=== PATIENT | female | born 1970 | race Caucasian/White ===

== ENCOUNTER 2017-06-24 19:51 | Emergency (ER) | payer BC ==
[~2017-06-24] VITALS: Ht 175.3 cm; Wt 136.1 kg
[~2017-06-24 19:51] MED LIST: ABILIFY5 MG PO; ATENOLOL50 MG PO; BUPROPION XL150 MG PO; CARAFATE1 GM/10 ML PO; CELEXA40 MG PO; CETIRIZINE HCL10 MG PEG; ETODOLAC500 MG PO; FENOFIBRATE145 MG PO; FERROUS SULFAT325 MG PO; FLECTOR1 EACH TOP; FOLIC ACID1 MG PO; GABAPENTIN300 MG PO; HYDROCHLOROTHIA25 MG PO; LASIX20 MG PO; LEVETIRACETAM500 MG PO; LISINOPRIL10 MG PO; LYRICA75 MG PO; MEDROXYPROGESTE10 MG PO; METOCLOPRAMIDE10 MG PO; NIACIN500 M2 PO; OMEPRAZOLE40 MG PO; POTASSIUM CHLO10 ME1 PO; PRAVASTATIN SOD40 MG PO; PREDNISONE5 G1 PO; SPIRONOLACTONE25 MG PO; VITAMIN D250000 UNIT PO; XARELTO20 MG PO
--- OUTSIDE RECORDS SUMMARY | 2017-06-24 19:53 | XMS REPORT | Clinical Summary ---
Author Author MAL[facility] Address Unknown Phone Unavailable Care Team Providers Care Program Development Manager Name Role Phone PCP Unavailable Allergies Active Allergy Reactions Severity Noted Date Comments Latex Anaphylaxis High 03/08/2017 Penicillins Anaphylaxis High 03/08/2017 Shellfish Containing Itching 03/22/2017 Pt states "ok with Products contrast media" Current Medications Prescription Sig. Disp. Refills Start End Date Status Date amLODIPine (NORVASC) 10 Take 10 mg by mouth Active MG tablet daily. ARIPiprazole (ABILIFY) 15 Take 15 mg by mouth Active MG tablet daily. atenolol (TENORMIN) 50 MG Take 50 mg by mouth Active tablet daily. buPROPion (WELLBUTRIN XL) Take 300 mg by mouth Active 300 MG 24 hr tablet daily. buPROPion (WELLBUTRIN XL) Take 150 mg by mouth Active 150 MG 24 hr tablet daily. carisoprodol (SOMA) 350 Take 350 mg by mouth 3 Active MG tablet (three) times daily. cetirizine (ZYRTEC) 10 MG Take 10 mg by mouth Active tablet daily. citalopram (CELEXA) 40 MG Take 40 mg by mouth Active tablet daily. fenofibrate Take 160 mg by mouth Active (TRIGLIDE,LOFIBRA) 160 MG daily. tablet ferrous sulfate 325 (65 Take 325 mg by mouth 3 Active FE) MG tablet (three) times daily with meals. folic acid (FOLVITE) 1 MG Take 1 mg by mouth daily. Active tablet furosemide (LASIX) 40 MG Take 40 mg by mouth Active tablet daily. gabapentin (NEURONTIN) Take 400 mg by mouth 3 Active 400 MG capsule (three) times daily. HYDROcodone-acetaminophen Take 1 tablet by mouth Active (NORCO 10-325) 10-325 mg every 6 (six) hours as per tablet needed for Pain. LACTOBACILLUS ACIDOPHILUS Take by mouth. Active (PROBIOTIC ORAL) levETIRAcetam (KEPPRA) Take 1,500 mg by mouth 3 Active 750 MG tabletIndications: (three) times daily. seizure disorder lisinopril Take 40 mg by mouth Active (PRINIVIL,ZESTRIL) 40 MG daily. tablet medroxyPROGESTERone Take 10 mg by mouth Active (PROVERA) 10 MG tablet daily. metoclopramide HCl Take 10 mg by mouth 4 Active (REGLAN) 10 MG tablet (four) times daily. omeprazole (PRILOSEC) 10 Take 10 mg by mouth Active MG capsule daily. potassium chloride Take 10 mEq by mouth Active (KLOR-CON) 10 MEQ CR daily. tablet pravastatin (PRAVACHOL) Take 40 mg by mouth Active 40 MG tablet daily. pregabalin (LYRICA) 225 Take 225 mg by mouth 2 Active MG capsule (two) times daily. promethazine (PHENERGAN) Take 25 mg by mouth every Active 25 MG tablet 6 (six) hours as needed for Nausea. sucralfate (CARAFATE) 1 Take 1 g by mouth 4 Active gram tablet (four) times daily. SUMAtriptan (IMITREX) 50 Take 50 mg by mouth once Active MG tablet as needed for Headaches. calcium carbonate-vitamin Take 1 tablet by mouth Active D2 500 mg(1,250mg) -200 daily. unit tablet ASCORBATE CALCIUM Take by mouth. Active (VITAMIN C ORAL) BUTALB/ACETAMINOPHEN/CAFF Take by mouth as needed. Active EINE (FIORICET ORAL) busPIRone (BUSPAR) 15 MG Take 15 mg by mouth 3 Active tablet (three) times daily. traMADol (ULTRAM) 50 mg Take 1 tablet (50 mg 30 tablet 0 04/11/20 Active tablet total) by mouth 3 (three) 17 times daily. Max Daily Amount: 150 mg rivaroxaban (XARELTO) 15 Take by mouth daily with 04/11/20 Discontin mg Tab tablet dinner . 17 ued traMADol (ULTRAM) 50 mg Take 50 mg by mouth 3 20 Discontin tablet (three) times daily. 17 ued enoxaparin (LOVENOX) 150 Inject 0.66 mLs (100 mg 9.24 mL 0 04/11/20 04/18/20 mg/mL injection total) subcutaneously 17 17 every 12 (twelve) hours for 7 days. 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 syndrome (Primary Dx);Morbid obesity (HCC) 04/06/2017 [facility] Radiology Blanco Mccann, Pre-operative Encounter MD clearance;Hypertension, unspecified type;Hyperlipidemia, unspecified hyperlipidemia type;Venous thromboembolism;Snoring 03/26/2017 Hospital Pavan Mckeon Encounter MD Patricia 03/26/2017 Procedure Pass 03/23/2017 Anesthesia Pankaj Abel MD Event 03/22/2017 Hospital Pre-Admission Testing Pavan Mckeon Encounter MD Patricia 03/22/2017 Hospital Pre-Admission Testing Pavan Mckeon Encounter MD Patricia 03/22/2017 Outside Orders Central Scheduling Blanco Mccann, Pre-operative clearance MD (Primary Dx);Hypertension, unspecified type;Hyperlipidemia, unspecified hyperlipidemia type;Venous thromboembolism;Snoring after 06/23/2016 Social History Tobacco Use Types Packs/Day Years Used Date Current Every Day Smoker 2 28 Smokeless Tobacco: Never Used Tobacco Cessation: Ready to Quit: Yes; Counseling Given: Yes Comments: handout to be given dos Alcohol Use Drinks/Week oz/Week Comments No Sex Assigned at Date Recorded Not on file Last Filed Vital Signs Vital Sign Reading Time Taken Blood Pressure 132/83 04/11/2017 5:50 PM RETIREMENT SALES CONSULTANT Pulse 93 04/11/2017 5:50 PM RETIREMENT SALES CONSULTANT Temperature 36.6 C (97.9 F) 04/11/2017 3:25 PM RETIREMENT SALES CONSULTANT Respiratory Rate 20 04/11/2017 3:25 PM RETIREMENT SALES CONSULTANT Oxygen Saturation 94% 04/11/2017 5:50 PM RETIREMENT SALES CONSULTANT Inhaled Oxygen - - Concentration Weight 149.2 kg (328 lb 14.8 oz) 04/10/2017 11:37 AM RETIREMENT SALES CONSULTANT Height 175.3 cm (5' 9") 04/10/2017 11:37 AM RETIREMENT SALES CONSULTANT Body Mass Index 48.57 04/10/2017 11:37 AM RETIREMENT SALES CONSULTANT Plan of Treatment Health Maintenance Due Date Last Done Comments INFLUENZA VACCINE 01/21/2017 Procedures Procedure Name Priority Date/Time Associated Diagnosis Comments CYSTOSCOPY 04/10/2017 Uterine bleeding 1:00 PM RETIREMENT SALES CONSULTANT LAPAROSCOPY,CYSTECTOMY/SA 04/10/2017 Uterine bleeding LPINGECTOMY/OOPHORECTOMY 1:00 PM RETIREMENT SALES CONSULTANT HYSTERECTOMY,VAGINAL W/ 04/10/2017 Uterine bleeding SALPINGO-OOPHORECTOMY 1:00 PM RETIREMENT SALES CONSULTANT after 06/23/2016 Results * INTRAOPERATIVE PATH REPORT - SCAN (05/02/2017 2:11 PM) * RHYTHM STRIP - SCAN (04/17/2017 2:21 PM) * TRANSFUSION SERVICE REPORT - SCAN (04/13/2017 5:44 PM) Only the most recent of 5 results within the time period is included. * POC-Glucose meter (04/11/2017 6:06 PM) Component Value Ref Range POC-Glucose Meter 187 (H)Comment: TESTED AT [address] 70 - 110 mg /dL [facility] [id number] Specimen Performing Laboratory Blood [address] [address] * Hemoglobin A1c (04/11/2017 2:25 PM) Component Value Ref Range Hemoglobin A1C 7.0 (H) 4.3 - 6.1 % Specimen Performing Laboratory Blood [address] [address] * CBC with platelet count + automated diff (04/11/2017 3:28 AM) Only the most recent of 2 results within the time period is included. Component Value Ref Range WBC 15.5 (H) 3.5 - 10.5 K/ L RBC 4.35 3.93 - 5.22 M/ L Hemoglobin 14.6 11.2 - 15.7 GM/DL Hematocrit 44.3 34.1 - 44.9 % MCV 101.8 (H) 79.4 - 94.8 fL MCH 33.6 (H) 25.6 - 32.2 pg MCHC 33.0 32.2 - 35.5 GM/DL RDW 13.6 11.7 - 14.4 % Platelets 218 150 - 450 K/CU MM MPV 9.5 9.4 - 12.3 fL nRBC 0 0 - 0 /100 WBC % Neutros 87 % % Lymphs 6 % % Monos 6 % % Eos 0 % % Baso 0 % # Neutros 13.55 (H) 1.56 - 6.13 K/ L # Lymphs 0.89 (L) 1.18 - 3.74 K/ L # Monos 0.87 (H) 0.24 - 0.36 K/ L # Eos 0.00 (L) 0.04 - 0.36 K/ L # Baso 0.04 0.01 - 0.08 K/ L Immature 1 0 - 1 % Granulocytes-Relative Specimen Performing Laboratory Blood [address] [address] * CBC with platelet count + automated diff (04/11/2017 3:28 AM) Only the most recent of 2 results within the time period is included. Specimen Performing Laboratory Blood Narrative The following orders were created for panel order CBC with platelet count + automated diff. Procedure Abnormality Status --------- - ------ CBC with platelet count ...[[id number]]AbnormalFinal result Please view results for these tests on the individual orders. * Basic Metabolic Panel (04/11/2017 3:28 AM) Component Value Ref Range Sodium 132 (L) 136 - 145 meq/L Potassium 4.7 3.5 - 5.1 meq/L Chloride 101 98 - 107 meq/L CO2 21 (L) 22 - 29 meq/L BUN 4 (L) 7 - 21 mg/dL Creatinine 0.52 (L) 0.57 - 1.25 mg/dL Glucose 238 (H) 70 - 105 mg/dL Calcium 8.2 (L) 8.4 - 10.2 mg/dL EGFR 127Comment: ESTIMATED GFR IS NOT ACCURATE mL/min/1.73 sq m CREATININE CLEARANCE IN PREDICTING GLOMERULAR FILTRATION RATE. ESTIMATED GFR IS NOT APPLICABLE FOR DIALYSIS PATIENTS. Specimen Performing Laboratory Blood [address] [address] * Tissue Exam (04/10/2017 4:55 PM) Component Value Ref Range Case Report Surgical Pathology Report Case: [id number] Authorizing Provider: MikePavanchristi, Collected: 04/10/2017 1655 Ordering Location: [facility] PERIOPERATIVE Received: 04/10/2017 1703 SERVICES Pathologist: Marianne Perez MD Specimens: A) - Uterus w/Cervix B) - Fallopian Tube, Right & Ovary, Right fallopian tube, right ovary C) - Fallopian Tube, Left & Ovary, Left fallopian tube, left ovary DIAGNOSIS A. UTERUS, CERVIX, HYSTERECTOMY: UTERUS - WEAKLY PROLIFERATIVE ENDOMETRIUM WITH CHRONIC ENDOMETRITIS - UNREMARKABLE MYOMETRIUM - UTERINE SEROSA WITH ENDOMETRIOSIS CERVIX - LOW GRADE SQUAMOUS INTRAEPITHELIAL LESION (TRINH 1) - PARAKERATOSIS - ENDOMETRIOSIS B. FALLOPIAN TUBE AND OVARY, RIGHT, SALPINGO-OOPHORECTOMY: OVARY - INCLUSION CYST FALLOPIAN TUBE - NO PATHOLOGIC CHANGES C. FALLOPIAN TUBE AND OVARY, LEFT, SALPINGO-OOPHORECTOMY: OVARY - HEMORRHAGIC CORPUS LUTEUM CYST FALLOPIAN TUBE - NO PATHOLOGIC CHANGES Signing Pathologist Direct Phone Line: [phone] CPT Code(s) 37364, 39290 CLINICAL HISTORY Abnormal uterine bleed SPECIMEN SOURCE A. Uterus with cervix. B. Right fallopian tube and right ovary. C. Left fallopian tube and left ovary GROSS DESCRIPTION Specimen is received fresh for intraoperative gross consultation labeled with the patient's name, Carlene George and "uterus with cervix" is a 108 gm hysterectomy specimen with no attached adnexal structure present. The uterus measures 9.5 x 5.0 x 4.5 cm. The cervix measures 2.0 x 2.0 cm with guzman-pink ectocervical mucosa. No probable os is present. The uterine serosal surface is pink-guzman and smooth with no masses or lesions grossly identified. Specimen is bivalved coronally revealing an endometrial cavity measuring 2.8 x 2.0 cm with an average endometrial thickness of 0.1 cm. No gross mucosal base lesions or abnormalities are identified. The myometrium average thickness measures 2.0 cm. No additional masses or lesions are identified within the cervix or uterine body. Automobile Parker sections are submitted as follows: cassette A1-A3, anterior ectocervix and endomyometrium; A4-A5, posterior ectocervix and endomyometrium; A7-A12, remainder of anterior cervix; A13-A18, remainder of posterior ectocervix. CLAIRE/pl Specimen is received in two containers of formalin both labeled with the patient's information. Specimen B: Labeled "right fallopian tube and right ovary" consists of an 18 gm salpingo-oophorectomy with ovary measuring 4.5 x 3 x 1.6 cm and a small segment of distal fallopian tube measuring 1 cm in length x 0.4 cm in diameter. The fallopian tube is unremarkable. The ovarian surface is guzman-pink, smooth and intact. Cross sectioning the ovary shows a unilocular subcortical cyst measuring up to 0.7 cm filled with guzman-red clear fluid. No other abnormalities are seen. Section code: B1, entire segment of fallopian tube bisected; B2-B4, random sections of ovary. Specimen C: Labeled "left fallopian tube and left ovary" consists of a 19 gm salpingo-oophorectomy with ovary measuring 4 x 3 x 2 cm and a segment of fallopian tube measuring 1.5 cm in length x 0.3 cm in diameter. There are multiple small subcortical cysts measuring up to 0.5 cm filled with guzman-red thin fluid. There are also two hemorrhagic corpora lutea measuring up to 1 cm in greatest dimension. No other abnormalities are seen. Section code: C1, entire fallopian tube segment bisected; C2-C4, random sections of ovary. CG/ew INTRAOPERATIVE A. INTRAOPERATIVE GROSS EXAMINATION: CONSULTATION - NO GROSSLY MALIGNANT LESIONS. DEFERRED TO PERMANENT MICROSCOPIC SECTIONS - INTERPRETED BY DR. MARTHA LEYVA. TIME STAMPED: APR 10, 2017, 5:20 P.M. MICROSCOPIC DESCRIPTION A-C: Performed. Professional component [facility], Department of was performed at Pathology, [address] [place] [id number], Specimen Performing Laboratory Tissue - Uterus w/Cervix; [facility] Tissue - Fallopian Tube, [address] [place] [address] Right & Ovary; [place] [address] Fallopian Tube, Left & Ovary * POCT , urine (04/10/2017 1:18 PM) Component Value Ref Range Test Urine, POC Negative Control line present?, Yes POC Background clear?, POC Yes UPT Cassette Lot #, POC [id number] UPT Cassette Expiration 09/20/2018 Date, POC * Prepare RBC (04/09/2017 12:07 PM) Only the most recent of 3 results within the time period is included. Component Value Ref Range Unit ABO B Pos UNIT NUMBER [id number] Status WORK IN PROGRESS Blood Bank Product RED BLOOD CELLS PRODUCT CODE [id number] Unit ABO B Pos UNIT NUMBER [id number] Status WORK IN PROGRESS Blood Bank Product RED BLOOD CELLS PRODUCT CODE [id number] Specimen Performing Laboratory [facility] [place] * NM myocardial perfusion SPECT, pharm(Lexiscan) (04/09/2017 11:31 AM) Specimen Performing Laboratory [facility] Narrative FINAL REPORT PROCEDURE:2-Day Stress/Rest MYOCARDIAL PERFUSION SPECT with regadenoson\\XA9\\ CPT CODE:39592 INDICATION:Z01.818, I 10, E 78.5, I 82.90, R06.83 HISTORY:Cardiac risk factors: Hypertension, dyslipidemia, tobacco. Other cardiovascular history: No reported CAD. Recent cardiac symptoms: Dyspnea, syncope. Current cardiovascular-related medications: Fenofibrate, amlodipine, lisinopril, atenolol, furosemide. PROTOCOL:32.7 mCi of Tc-99m sestamibi was injected iv at expected peak pharmacologic effect, and gated SPECT (tomographic) images were obtained. On a separate day, 32.5 mCi of Tc-99m sestamibi was injected iv at rest, and SPECT images were obtained. PRELIMINARY STRESS TEST DATA FROM NONINVASIVE CARDIOLOGY: Pharmacologic stress was by 10-second iv infusion of 0.4 mg of regadenoson. Radiotracer was injected 30 seconds after start of stress. Heart rate was 74 beats/min at rest and 88 beats/min (50 % of MPHR) at tracer injection. BP was 108/58 mmHg at rest and 112/58 mmHg at tracer injection. Stress was stopped for predetermined endpoint. The patient experienced no symptoms; treatment was not required. Preliminary ECG evaluation revealed sinus rhythm at rest and no ischemic changes with stress. (Final ECG interpretation and other stress and monitoring data are reported separately by Cardiology.) IMAGING FINDINGS:Study quality is adequate. Post-stress images show perfusion defects in the basal and mid anterior and anteroseptal rosales. Resting images show the same defects. LV volume appears normal. RV volume appears normal. Gated images obtained at rest after stress injection show normal LV wall motion and thickening. QGS LVEF is greater than 70%. IMPRESSION: 1. Normal study.2. Appropriate pharmacologic stress. 3. Probably normal myocardial perfusion. There is a mild severity, medium sized, fixed, perfusion defect in the basal and mid anterior and anteroseptal rosales of the LV. These abnormalities likely represent artifact from overlying breast tissue. 4. Overall resting LV function is normal with normal wall motion.5. Extracardiac tracer distribution is normal.6. No previous [facility] study for comparison. NONINVASIVE RISK STRATIFICATION: The above findings are considered low risk (<1% annual mortality rate) based on the following criterion: - Normal or small myocardial perfusion defect at rest or with stress (JAC. 2012;59(9):857-81.) Signed: Hasmukh Lorenzo MD Report Verified Date/Time:04/09/2017 14:36:37 Reading Location: [address] Reading Room Procedure Note Interface, External Ris In - 04/09/2017 2:38 PM RETIREMENT SALES CONSULTANT FINAL REPORT PROCEDURE: 2-Day Stress/Rest MYOCARDIAL PERFUSION SPECT with regadenoson\\XA9\\ CPT CODE: 80110 INDICATION: Z01.818, I 10, E 78.5, I 82.90, R06.83 HISTORY: Cardiac risk factors: Hypertension, dyslipidemia, tobacco. Other cardiovascular history: No reported CAD. Recent cardiac symptoms: Dyspnea, syncope. Current cardiovascular-related medications: Fenofibrate, amlodipine, lisinopril, atenolol, furosemide. PROTOCOL: 32.7 mCi of Tc-99m sestamibi was injected iv at expected peak pharmacologic effect, and gated SPECT (tomographic) images were obtained. On a separate day, 32.5 mCi of Tc-99m sestamibi was injected iv at rest, and SPECT images were obtained. PRELIMINARY STRESS TEST DATA FROM NONINVASIVE CARDIOLOGY: Pharmacologic stress was by 10-second iv infusion of 0.4 mg of regadenoson. Radiotracer was injected 30 seconds after start of stress. Heart rate was 74 beats/min at rest and 88 beats/min (50 % of MPHR) at tracer injection. BP was 108/58 mmHg at rest and 112/58 mmHg at tracer injection. Stress was stopped for predetermined endpoint. The patient experienced no symptoms; treatment was not required. Preliminary ECG evaluation revealed sinus rhythm at rest and no ischemic changes with stress. (Final ECG interpretation and other stress and monitoring data are reported separately by Cardiology.) IMAGING FINDINGS: Study quality is adequate. Post-stress images show perfusion defects in the basal and mid anterior and anteroseptal rosales. Resting images show the same defects. LV volume appears normal. RV volume appears normal. Gated images obtained at rest after stress injection show normal LV wall motion and thickening. QGS LVEF is greater than 70%. IMPRESSION: 1. Normal study. 2. Appropriate pharmacologic stress. 3. Probably normal myocardial perfusion. There is a mild severity, medium sized, fixed, perfusion defect in the basal and mid anterior and anteroseptal rosales of the LV. These abnormalities likely represent artifact from overlying breast tissue. 4. Overall resting LV function is normal with normal wall motion. 5. Extracardiac tracer distribution is normal. 6. No previous [facility] study for comparison. NONINVASIVE RISK STRATIFICATION: The above findings are considered low risk (<1% annual mortality rate) based on the following criterion: - Normal or small myocardial perfusion defect at rest or with stress (JACC. 2012;59(9):857-81.) Signed: Hasmukh Lorenzo MD Report Verified Date/Time: 04/09/2017 14:36:37 Reading Location: [address] Reading Room * Treadmill tolerance(Non-Nuclear Treadmill) (04/06/2017 10:27 AM) Specimen Performing Laboratory [facility] Narrative Protocol Name Regadenoson Time In Exercise Phase 00:01:00 Max. Systolic BP 112 mmHg Max Diastolic BP 58 mmHg Max Heart Rate 88 BPM Max Predicted Heart Rate 174 BPM Reason For Termination Predetermined end point Reason for Test Pre Op Cardiac Evaluation/Clearance Target HR Formula (220 - Age)*100% Arrhythmias none Resting ECG Normal sinus rhythm ST Changes No Significant Changes Overall Impression Indeterminate due to pharmacological stress Chest Pain none HR Response To Exercise BP Response To Exercise ATENOLOL AMLODIPINE LASIX LISINOPRIL Fenofibrate Confirmed by fellow Yosef Andrade ([id number]) on 04/06/2017 10:48:47 AM Confirmed by MD FERGUSON JORGE ([id number]) on 04/11/2017 1:01:06 PM Procedure Note Interface, External Ris In - 04/11/2017 1:01 PM RETIREMENT SALES CONSULTANT Protocol Name Neptali Time In Exercise Phase 00:01:00 Max. Systolic BP 112 mmHg Max Diastolic BP 58 mmHg Max Heart Rate 88 BPM Max Predicted Heart Rate 174 BPM Reason For Termination Predetermined end point Reason for Test Pre Op Cardiac Evaluation/Clearance Target HR Formula (220 - Age)*100% Arrhythmias none Resting ECG Normal sinus rhythm ST Changes No Significant Changes Overall Impression Indeterminate due to pharmacological stress Chest Pain none HR Response To Exercise BP Response To Exercise ATENOLOL AMLODIPINE LASIX LISINOPRIL Fenofibrate Confirmed by fellow Yosef Andrade ([id number]) on 04/06/2017 10:48:47 AM Confirmed by MD FERGUSON JORGE ([id number]) on 04/11/2017 1:01:06 PM * Antibody identification (03/23/2017 10:15 AM) Component Value Ref Range ANTIBODY ID (BEAKER) WARM AUTO AB Antibody Consult SIGNED OUTComment: Warm panagglutinin detected, ok to transfuse incompatible blood.Electronic Signature: Elton Cesar M.D. Specimen Performing Laboratory [facility] [place] * Type and screen, automated (03/22/2017 5:11 PM) Component Value Ref Range ABO/RH AUTOMATED (BEAKER) B POSITIVE Ab Scrn POSITIVEComment: Echo 2 Specimen [place] [address] * Screen, urine (03/22/2017 5:11 PM) Component Value Ref Range Preg Test, Ur Negative Specimen Performing [place] [address] * Direct AHG (NOÉ)/Direct Liborio (03/22/2017 5:11 PM) Component Value Ref Range Direct AHG-IGG POSITIVEComment: Ig+ Direct AHG-C3B, C3D POSITIVEComment: C3: 1+ Specimen [place] [address] * Comprehensive metabolic panel (03/22/2017 5:11 PM) Component Value Ref Range Protein, Total 7.9Comment: Specimen slightly hemolyzed 6.0 - 8.3 gm/dL Albumin 4.0Comment: Specimen slightly hemolyzed 3.5 - 5.0 g/dL Alkaline Phosphatase 74 40 - 150 U/L Total Bilirubin 0.3Comment: Specimen slightly hemolyzed 0.2 - 1.2 mg/dL Sodium 136 136 - 145 meq/L Potassium 4.6Comment: Specimen slightly hemolyzed 3.5 - 5.1 meq/L Chloride 99 98 - 107 meq/L CO2 26 22 - 29 meq/L BUN 17 7 - 21 mg/dL Creatinine 0.81Comment: Specimen slightly hemolyzed 0.57 - 1.25 mg/dL Glucose 227 (H) 70 - 105 mg/dL Calcium 9.5 8.4 - 10.2 mg/dL AST 21Comment: Specimen slightly hemolyzed 5 - 34 U/L ALT 26Comment: Specimen slightly hemolyzed 6 - 55 U/L EGFR 76Comment: ESTIMATED GFR IS NOT ACCURATE mL/min/1.73 sq m CREATININE CLEARANCE IN PREDICTING GLOMERULAR FILTRATION RATE. ESTIMATED GFR IS NOT APPLICABLE FOR DIALYSIS PATIENTS. Specimen Performing Laboratory Blood [address] [address] * PT/aPTT (03/22/2017 5:10 PM) Component Value Ref Range Protime 14.4 11.7 - 14.7 seconds INR 1.1 <=5.9 PTT 27.6 22.5 - 36.0 seconds Specimen Performing Laboratory Blood [address] [address] Narrative RECOMMENDED COUMADIN/WARFARIN INR THERAPY RANGES STANDARD DOSE: 2.0 - 3.0 Includes: PROPHYLAXIS for venous thrombosis, systemic embolization; TREATMENT for venous thrombosis and/or pulmonary embolus. HIGH RISK: Target INR is 2.5-3.5 for patients with mechanical heart valves. after 06/23/2016
--- OUTSIDE RECORDS SUMMARY | 2017-06-24 19:54 | XMS REPORT ---
Author Author [facility] Address Unknown Phone Unavailable Care Team Providers Care Boiler Mechanic Name Role Phone FABRIZIO MCKEON Unavailable Unavailable HERMINIAJOYJOMAR Unavailable Unavailable Problems This patient has no known problems. Allergies, Adverse Reactions, Alerts This patient has no known allergies or adverse reactions. Medications This patient has no known medications. Results Test Description Test Time Test Comments Text Results Atomic Results Result Comments TISSUE EXAM 2017-04-12 12:14:00 Surgical Pathology Report Case: [id number] Authorizing Provider: Fabrizio Mckeon, Collected: 04/10/2017 1655 Ordering Location: [facility] PERIOPERATIVE Received: 04/10/2017 1703 SERVICES Pathologist: Marianne Perez MD Specimens: A) - Uterus w/Cervix B) - Fallopian Tube, Right & Ovary, Right fallopian tube, right ovary C) - Fallopian Tube, Left & Ovary, Left fallopian tube, left ovary A. UTERUS, CERVIX, HYSTERECTOMY: UTERUS - WEAKLY PROLIFERATIVE ENDOMETRIUM WITH CHRONIC ENDOMETRITIS - UNREMARKABLE MYOMETRIUM - UTERINE SEROSA WITH ENDOMETRIOSIS CERVIX - LOW GRADE SQUAMOUS INTRAEPITHELIAL LESION (TRINH 1) - PARAKERATOSIS - ENDOMETRIOSISB. FALLOPIAN TUBE AND OVARY, RIGHT, SALPINGO-OOPHORECTOMY: OVARY - INCLUSION CYST FALLOPIAN TUBE - NO PATHOLOGIC CHANGESC. FALLOPIAN TUBE AND OVARY, LEFT, SALPINGO-OOPHORECTOMY: OVARY - HEMORRHAGIC CORPUS LUTEUM CYST FALLOPIAN TUBE - NO PATHOLOGIC CHANGES Signing Pathologist Direct Phone Line: [phone] signed by Marianne Perez MD on 04/12/2017 at 12:14 [id number], [id number] uterine bleedA. Uterus with cervix. B. Right fallopian tube and right ovary. C. Left fallopian tube and left ovary Specimen is received fresh for intraoperative gross [...] identified within the cervix or uterine body. Desilverizer sections are submitted as follows: cassette A1-A3, anterior ectocervix and endomyometrium; A4-A5, posterior ectocervix and endomyometrium; A7-A12, remainder of anterior cervix; A13-A18, remainder of posterior ectocervix. CLAIRE/plSpecimen is received in two containers of formalin both labeled with the patient's information.Specimen B: Labeled "right fallopian tube and right [...] guzman-red clear fluid. No other abnormalities are seen.Section code: B1, entire segment of fallopian tube bisected; B2-B4, random sections of ovary.Specimen C: Labeled "left fallopian tube and left [...] in greatest dimension. No other abnormalities are seen.Section code: C1, entire fallopian tube segment bisected; C2-C4, random sections of ovary. CG/Ritchie. INTRAOPERATIVE GROSS EXAMINATION: - NO GROSSLY MALIGNANT LESIONS. DEFERRED TO PERMANENT MICROSCOPIC SECTIONS - INTERPRETED BY DR. MARTHA LEYVA. TIME STAMPED: APR 10, 2017, 5:20 P.M.A-C: Performed.[facility] , Department of Pathology, [address] [place] [address], Tel POCT-GLUCOSE METER 2017-04-11 18:08:00 POC-GLUCOSE METER (BEAKER) (test awss=8828) 187 mg/dL 70-110 [address]ED AT [address] [address] HEMOGLOBIN [id number] 16:51:00* Test Item Value Reference Range Comments HEMOGLOBIN A1C (BEAKER) (test fgum=020) 7.0 % 4.3-6.1 CBC W/PLT COUNT & AUTO [id number] 04:35:00* Test Item Value Reference Range Comments WHITE BLOOD CELL COUNT (BEAKER) (test bhux=570) 15.5 K/ L 3.5-10.5 RED BLOOD CELL COUNT (BEAKER) (test rqgm=070) 4.35 M/ L 3.93-5.22 HEMOGLOBIN (BEAKER) (test dupi=672) 14.6 GM/DL 11.2-15.7 HEMATOCRIT (BEAKER) (test owyn=321) 44.3 % 34.1-44.9 MEAN CORPUSCULAR VOLUME (BEAKER) (test kibm=579) 101.8 fL 79.4-94.8 MEAN CORPUSCULAR HEMOGLOBIN (BEAKER) (test xdrb=499) 33.6 pg 25.6-32.2 MEAN CORPUSCULAR HEMOGLOBIN CONC (BEAKER) (test alrq=778) 33.0 GM/DL 32.2- 35.5 RED CELL DISTRIBUTION WIDTH (BEAKER) (test ooqz=321) 13.6 % 11.7-14.4 PLATELET COUNT (BEAKER) (test ibne=908) 218 K/CU MM 150-450 MEAN PLATELET VOLUME (BEAKER) (test hqru=251) 9.5 fL 9.4-12.3 NUCLEATED RED BLOOD CELLS (BEAKER) (test egbw=812) 0 /100 WBC 0-0 NEUTROPHILS RELATIVE PERCENT (BEAKER) (test rzww=908) 87 % LYMPHOCYTES RELATIVE PERCENT (BEAKER) (test ytkt=480) 6 % MONOCYTES RELATIVE PERCENT (BEAKER) (test fgqi=997) 6 % EOSINOPHILS RELATIVE PERCENT (BEAKER) (test klmp=547) 0 % BASOPHILS RELATIVE PERCENT (BEAKER) (test jmru=421) 0 % NEUTROPHILS ABSOLUTE COUNT (BEAKER) (test zhlp=837) 13.55 K/ L 1.56-6.13 LYMPHOCYTES ABSOLUTE COUNT (BEAKER) (test adjm=090) 0.89 K/ L 1.18-3.74 MONOCYTES ABSOLUTE COUNT (BEAKER) (test mkpu=588) 0.87 K/ L 0.24-0.36 EOSINOPHILS ABSOLUTE COUNT (BEAKER) (test uaoc=217) 0.00 K/ L 0.04-0.36 BASOPHILS ABSOLUTE COUNT (BEAKER) (test abpg=325) 0.04 K/ L 0.01-0.08 IMMATURE GRANULOCYTES-RELATIVE PERCENT (BEAKER) (test foxt=8669) 1 % 0-1 BASIC METABOLIC [id number] 04:25:00* Test Item Value Reference Range Comments SODIUM (BEAKER) (test qcvf=319) 132 meq/L 136-145 POTASSIUM (BEAKER) (test ldww=894) 4.7 meq/L 3.5-5.1 CHLORIDE (BEAKER) (test bfcv=732) 101 meq/L 98-107 CO2 (BEAKER) (test regg=408) 21 meq/L 22-29 BLOOD UREA NITROGEN (BEAKER) (test jxki=550) 4 mg/dL 7-21 CREATININE (BEAKER) (test uxdp=250) 0.52 mg/dL 0.57-1.25 GLUCOSE RANDOM (BEAKER) (test pwvw=771) 238 mg/dL 70-105 CALCIUM (BEAKER) (test qwwm=509) 8.2 mg/dL 8.4-10.2 EGFR (BEAKER) (test antk=4016) 127 mL/min/1.73 sq m ESTIMATED GFR IS NOT ACCURATE CREATININE CLEARANCE IN PREDICTING GLOMERULAR FILTRATION RATE. ESTIMATED GFR IS NOT APPLICABLE FOR DIALYSIS PATIENTS. MYOCARD IMAGING, MULTI, PHARM, [id number] 14:36:00FINAL REPORT PROCEDURE: 2-Day Stress/Rest MYOCARDIAL PERFUSION SPECT with regadenoson\\XA9\\ CPT CODE: 87662 INDICATION: Z01.818, I 10, E 78.5 , I 82.90, R06.83 HISTORY: Cardiac risk factors: [...] BP was 108/58 mmHg at rest and 112 /58 mmHg at tracer injection. Stress was stopped [...] is normal. 6. No previous [facility] study for comparison. NONINVASIVE RISK STRATIFICATION: The above findings are considered low risk (<1% annual mortality rate) based on the following criterion: - Normal or small myocardial perfusion defect at rest or with stress(JACC. 2012;59(9):857-81.) Signed: Hasmukh Lorenzo Verified Date/Time: 04/09/2017 14:36:37 Reading Location: [address] [facility] Reading Room Electronically signed by: HASMUKH LORENZO M.D. on 2016 02:36 PM COMPREHENSIVE METABOLIC [id number] 18:33:00* Test Item Value Reference Range Comments TOTAL PROTEIN (BEAKER) (test jckk=588) 7.9 gm/dL 6.0-8.3 Specimen slightly hemolyzed ALBUMIN (BEAKER) (test tlgf=3934) 4.0 g/dL 3.5-5.0 Specimen slightly hemolyzed ALKALINE PHOSPHATASE (BEAKER) (test rlpm=939) 74 U/L 40-150 BILIRUBIN TOTAL (BEAKER) (test wayt=982) 0.3 mg/dL 0.2-1.2 Specimen slightly hemolyzed SODIUM (BEAKER) (test jyvy=429) 136 meq/L 136-145 POTASSIUM (BEAKER) (test fsmq=298) 4.6 meq/L 3.5-5.1 Specimen slightly hemolyzed CHLORIDE (BEAKER) (test ewga=822) 99 meq/L 98-107 CO2 (BEAKER) (test ewyl=280) 26 meq/L 22-29 BLOOD UREA NITROGEN (BEAKER) (test psgm=205) 17 mg/dL 7-21 CREATININE (BEAKER) (test psxv=896) 0.81 mg/dL 0.57-1.25 Specimen slightly hemolyzed GLUCOSE RANDOM (BEAKER) (test lohz=367) 227 mg/dL 70-105 CALCIUM (BEAKER) (test qlgq=085) 9.5 mg/dL 8.4-10.2 AST (SGOT) (BEAKER) (test mqlk=687) 21 U/L 5-34 Specimen slightly hemolyzed ALT (SGPT) (BEAKER) (test haoj=626) 26 U/L 6-55 Specimen slightly hemolyzed EGFR (BEAKER) (test ryqx=4138) 76 mL/min/1.73 sq m ESTIMATED GFR IS NOT ACCURATE CREATININE CLEARANCE IN PREDICTING GLOMERULAR FILTRATION RATE. ESTIMATED GFR IS NOT APPLICABLE FOR DIALYSIS PATIENTS. [id number] 18:11:00* Test Item Value Reference Range Comments PROTIME (BEAKER) (test wftl=234) 14.4 seconds 11.7-14.7 INR (BEAKER) (test oqlx=986) 1.1 <=5.9 PARTIAL THROMBOPLASTIN TIME (BEAKER) (test zbvo=235) 27.6 seconds 22.5-36.0 RECOMMENDED COUMADIN/WARFARIN INR THERAPY RANGESSTANDARD DOSE: 2.0 - 3.0 Includes: PROPHYLAXIS for venous thrombosis, systemic embolization; TREATMENT for venous thrombosis and/or pulmonary embolus.HIGH RISK: Target INR is 2.5-3.5 for patients with mechanical heart valves.CBC W/PLT COUNT & AUTO [id number] 18:05:00* Test Item Value Reference Range Comments WHITE BLOOD CELL COUNT (BEAKER) (test mowe=007) 11.8 K/ L 3.5-10.5 RED BLOOD CELL COUNT (BEAKER) (test yqac=570) 4.66 M/ L 3.93-5.22 HEMOGLOBIN (BEAKER) (test nodl=252) 15.4 GM/DL 11.2-15.7 HEMATOCRIT (BEAKER) (test sgci=130) 45.3 % 34.1-44.9 MEAN CORPUSCULAR VOLUME (BEAKER) (test ulyi=397) 97.2 fL 79.4-94.8 MEAN CORPUSCULAR HEMOGLOBIN (BEAKER) (test rcgk=582) 33.0 pg 25.6-32.2 MEAN CORPUSCULAR HEMOGLOBIN CONC (BEAKER) (test gtuy=591) 34.0 GM/DL 32.2- 35.5 RED CELL DISTRIBUTION WIDTH (BEAKER) (test uzak=902) 12.7 % 11.7-14.4 PLATELET COUNT (BEAKER) (test fkqt=141) 227 K/CU MM 150-450 MEAN PLATELET VOLUME (BEAKER) (test gwng=625) 10.6 fL 9.4-12.3 NUCLEATED RED BLOOD CELLS (BEAKER) (test znpo=039) 0 /100 WBC 0-0 NEUTROPHILS RELATIVE PERCENT (BEAKER) (test jsiq=579) 70 % LYMPHOCYTES RELATIVE PERCENT (BEAKER) (test xmvn=499) 19 % MONOCYTES RELATIVE PERCENT (BEAKER) (test axyp=433) 6 % EOSINOPHILS RELATIVE PERCENT (BEAKER) (test iwon=738) 3 % BASOPHILS RELATIVE PERCENT (BEAKER) (test eqce=323) 1 % NEUTROPHILS ABSOLUTE COUNT (BEAKER) (test iwos=794) 8.19 K/ L 1.56-6.13 LYMPHOCYTES ABSOLUTE COUNT (BEAKER) (test ysnr=515) 2.27 K/ L 1.18-3.74 MONOCYTES ABSOLUTE COUNT (BEAKER) (test hlbk=774) 0.75 K/ L 0.24-0.36 EOSINOPHILS ABSOLUTE COUNT (BEAKER) (test vzwp=044) 0.29 K/ L 0.04-0.36 BASOPHILS ABSOLUTE COUNT (BEAKER) (test uumq=865) 0.11 K/ L 0.01-0.08 IMMATURE GRANULOCYTES-RELATIVE PERCENT (BEAKER) (test nvii=3182) 1 % 0-1 SCREEN, [id number] 18:01:00* Test Item Value Reference Range Comments TEST URINE (BEAKER) (test vjmg=496) Negative CHEST XRAY LINE PLACEMENT [place] [address] Patient Name: CARLENE NELSON MR #: [id number] : 1970 Age/Sex: 46/F Req #: [id number] Adm Physician: JOMAR EARLY MD Ordered by: JOMAR EARLY MD Report #: [id number] Location: MED/SURG2 Room/Bed: [facility] Procedure: [id number] DX/CHEST XRAY LINE PLACEMENT Exam Date: 01/10/17 Exam Time: 1000 REPORT STATUS: Signed PROCEDURE: CHEST XRAY LINE PLACEMENT COMPARISON: 09/21/2016. INDICATIONS: LEFT PICC LINE PLACEMENT FINDINGS: Tip of left upper extremity PICC projects over the low superior vena cava. Lungs are well -inflated and without consolidation, pleural effusion, or pneumothorax. Cardiomediastinal contour is within normal limits when accounting for portable, AP technique. No acute osseous abnormality. CONCLUSION: Tip of left upper extremity PICC projects over the expected region of the low superior vena cava. Clear lungs. Dictated by: Aram Posadas M.D. on 01/10/2017 at 10:29 Electronically approved by: Aram Posadas M.D. on 2016 at 10:29 Dictated By: ARAM POSADAS MD [id number] Transcribed By: AMY on 01/10/17 1029 COPY TO: JOMAR EARLY MD CT ABDOMEN/PELVIS W [place] [address] Patient Name: CARLENE NELSON MR #: [id number] : Age/Sex: 46/F Req #: [id number] Adm Physician: JOMAR EARLY MD Ordered by: JOMAR EARLY MD Report #: [id number] Location: [facility] Room/Bed: [facility] Procedure: [id number] CT/CT ABDOMEN/PELVIS W Exam Date: 01/09/17 Exam Time: 2200 REPORT STATUS: Signed EXAM: CT ABDOMEN/PELVIS W DATE : 01/09/2017 9:00 PM INDICATION: Cellulitis of the left leg COMPARISON: None TECHNIQUE: The abdomen and pelvis were scanned using a multidetector helical scanner. Coronal and sagittal reformations were obtained. Routine protocol performed. IV Contrast: 100 ml Isovue 370 FINDINGS: Examination is degraded by body habitus resulting in streak artifact/noise. LOWER THORAX: Mild left basilar/pleural scarring. LIVER/BILIARY: Hepatic steatosis and hepatomegaly. No ductal dilatation. GALLBLADDER/SPLEEN/ PANCREAS: Unremarkable ADRENALS: No nodules KIDNEYS: Symmetric perfusion. No enhancing masses. No hydronephrosis. GI TRACT: No distention , wall thickening or evidence of obstruction. VESSELS: Mild atherosclerotic changes PERITONEUM/RETROPERITONEUM: No free air or fluid LYMPH NODES: No lymphadenopathy REPRODUCTIVE ORGANS/BLADDER: 5 x 4.4 cm structure in the right adnexa favored to reflect the ovary. Otherwise grossly unremarkable. SOFT TISSUES: Moderate inflammatory changes of the ventral abdominal wall cutaneous and subcutaneous tissues. Rectus muscle diastases with mild protrusion of fat. BONES: Mild curvature of the spine. Multilevel degenerative changes and mild T10 central compression. IMPRESSION: 1. Cellulitis/panniculitis involving the ventral abdominal wall. 2. Hepatic steatosis with hepatomegaly. 3. Prominent right adnexa. Consider nonemergent follow-up pelvic ultrasound to assess for underlying cyst or lesion. Signed by: Dr Maddi Bonilla MD on 01/09/2017 10:32 PM Dictated By: MADDI BONILLA MD 31 Transcribed By: GREGORIO on 01/09/172231 COPY TO: JOMAR EARLY MD
[2017-06-24] MEDS ORDERED: KETOROLAC TROMETHAMINE 30 MG/ML VIAL IV STA (20:18)
[2017-06-24] MEDS ORDERED: LEVETIRACETAM 500MG/5ML VIAL 500 MG in SODIUM CHLORIDE 0.9% 100 ML 100 ML IV STA (20:18)
[2017-06-24] MEDS ORDERED: PANTOPRAZOLE 40 MG 10ML VIAL IV STA (20:18)
[2017-06-24] MEDS ORDERED: SODIUM CHLORIDE 0.9% 1000ML 1,000 ML IV STA (20:18)
[2017-06-24] MEDS ORDERED: METOCLOPRAMIDE HCL 10 MG/2ML VIAL IV ONE (20:30)
[2017-06-24] MEDS ORDERED: DIPHENHYDRAMINE HCL INJ 50 MG/ML VIAL IV ONE (20:30)
[2017-06-24] MEDS ORDERED: METOCLOPRAMIDE HCL 10 MG/2ML VIAL ONE (20:45)
[2017-06-24] MEDS ORDERED: DIPHENHYDRAMINE HCL INJ 1 ML ONE (20:46)
[2017-06-24] MEDS ORDERED: LEVETIRACETAM 500 MG/5 ML VIAL IV ONE (20:56)
[2017-06-24 21:06] LABS: BASOPHILS # (AUTO) 0.1 (0.0-0.1); BASOPHILS % 0.5 % (0.0-1.0); EOSINOPHILS # (AUTO) 0.1 (0.0-0.4); EOSINOPHILS % 0.7 % (0.0-6.0); HEMATOCRIT 41.2 % (34.2-44.1); HEMOGLOBIN 14.5 g/dL (12.0-16.0); LYMPHOCYTES # (AUTO) 1.1 (1.0-3.2); LYMPHOCYTES % 8.1 % (18.0-39.1); MEAN CORPUSCULAR HEMOGLOBIN 33.2 pg (28-32); MEAN CORPUSCULAR HGB CONC 35.2 g/dL (31-35); MEAN CORPUSCULAR VOLUME 94.3 fL (81-99); MONOCYTES # (AUTO) 0.7 (0.2-0.8); MONOCYTES % 5.6 % (4.4-11.3); NEUTROPHILS # (AUTO) 11.2 (2.1-6.9); NEUTROPHILS % 84.6 % (38.7-80.0); PLATELET COUNT 193 x10e3/uL (140-360); RED BLOOD COUNT 4.37 x10e6/uL (3.6-5.1); RED CELL DISTRIBUTION WIDTH 13.5 % (11.7-14.4)
--- NOTE | 2017-06-24 21:10 | Diagnostic Imaging Report ---
History: Seizure Comparison studies: None Technique: Axial images were obtained from the skull base to the vertex. Coronal and sagittal reconstructions obtained from the axial data. Findings: Scalp/skull: And old right occipital craniectomy defect is covered by a metallic mesh. No fractures, blastic or lytic lesions. Extra-axial spaces: No masses. No fluid collections. Brain sulci: Appropriate for age. Ventricles: Normal in size and configuration. No hydrocephalus. Parenchyma: Focal cortical encephalomalacic changes in the right superomedial occipital lobe under the craniotomy, are partially obscured by metallic artifacts. No additional abnormal densities. No masses, hemorrhage, acute or chronic cortical vascular insults. Sellar/suprasellar region: No abnormalities Craniocervical junction: Patent foramen magnum. No Chiari one malformation. IMPRESSION: No acute abnormalities. No previous studies available for comparison Chronic findings: 1. Focal right occipital craniectomy covered by a metallic mesh. 2. Focal encephalomalacic changes in the underlying occipital lobe probably relate to the surgery Signed by: Dr. Gerhard Harper M.D. on 06/24/2017 9:06 PM
--- NOTE | 2017-06-24 21:19 | Diagnostic Imaging Report ---
EXAM: CHEST 2 VIEWS, PA and lateral INDICATION: Seizures, fever, shortness of breath COMPARISON: None FINDINGS: LINES/TUBES: None LUNGS: No consolidations or edema. Stable scarring left lung base. Soft tissue attenuation over the lung bases. PLEURA: No effusions or pneumothorax. Stable pleural thickening of the left lateral lung. HEART AND MEDIASTINUM: Normal size and contour. BONES AND SOFT TISSUES: No acute findings. IMPRESSION: No acute thoracic abnormality. Signed by: Dr. Anitha Whiting M.D. on 06/24/2017 9:16 PM
[2017-06-24 21:28] LABS: INR 1.24; PARTIAL THROMBOPLASTIN TIME 27.4 seconds (23.8-35.5); PROTHROMBIN TIME 14.7 seconds (11.9-14.5)
[2017-06-24 21:34] LABS: ALBUMIN 3.8 g/dL (3.5-5.0); ALBUMIN/GLOBULIN RATIO 0.9 (0.8-2.0); ANION GAP 16.3 mmol/L (8-16); CALCIUM 9.8 mg/dL (8.4-10.2); MAGNESIUM 1.2 MG/DL (1.3-2.1); POTASSIUM 4.3 mmol/L (3.5-5.1)
[2017-06-24 22:02] LABS: CREATINE KINASE MB 1.2 ng/mL (0-5.0); THYROID STIMULATING HORMONE 0.241 uIU/mL (0.350-4.940)
[2017-06-24 22:31] LABS: BILIRUBIN,URINE NEGATIVE (NEGATIVE); COLOR,URINE YELLOW (YELLOW); KETONES,URINE NEGATIVE (NEGATIVE); LEUKOCYTE ESTERASE ,URINE TRACE (NEGATIVE); PROTEIN,URINE DIPSTICK NEGATIVE (NEGATIVE); URINE UROBILINOGEN 0.2 mg/dL (0.2 - 1)
[2017-06-24 22:33] LABS: CLARITY,URINE SL CLOUDY (CLEAR); NITRITE,URINE POSITIVE (NEGATIVE)
--- NOTE | 2017-06-24 22:35 | Diagnostic Imaging Report ---
History: Seizure Comparison studies: Precontrast head CT on 06/24/2017 Technique: Axial images were obtained from the skull base to the vertex. Coronal and sagittal reconstructions obtained from the axial data. Intravenous contrast: 100 cc of Isovue-370 Findings: See impression Impression: 1. No changes when compared to the precontrast head CT. 2. No enhancing abnormalities to suggest residual or recurrent tumor. Persistent findings: Old right occipital craniectomy covered with a metallic mesh. Focal cortical encephalomalacic changes in the right occipital lobe underlying the craniotomy. Signed by: Dr. Gerhard Harper M.D. on 06/24/2017 10:32 PM
[2017-06-24 22:49] LABS: BACTERIA,URINE MANY /HPF; EPITHELIAL CELLS,URINE FEW /LPF; WBC,URINE (MAN) 21-50 /HPF (0-5)
[2017-06-24] MEDS ORDERED: ALBUTEROL SULF 0.083% NEB SOLN 3 ML NEB NEB STA (22:55)
[2017-06-24] MEDS ORDERED: CEFTRIAXONE SOD 1 GM VIAL IV STA (22:55)
[2017-06-24] MEDS ORDERED: IPRATROPIUM BROMIDE 0.02% 2.5 ML NEB NEB ONE (23:00)
[2017-06-25] MEDS ORDERED: SODIUM CHLORIDE 0.9% 50ML 50 ML ONE (01:27)
[2017-06-25] MEDS ORDERED: IOPAMIDOL 370 MG/ML 200 ML INFUS..BTL INJ ONE (01:27)
[2017-06-27] MEDS ORDERED: BACTRIM DS TAB1 EACH PO (12:06)
== END 2017-06-25 00:30 | disposition home or self-care (01) ==
LOC: ER 19:51
DX: G40.409 Other generalized epilepsy and epileptic syndromes, not intractable, without status epilepticus (principal); N30.91 Cystitis, unspecified with hematuria; E05.90 Thyrotoxicosis, unspecified without thyrotoxic crisis or storm; F17.210 Nicotine dependence, cigarettes, uncomplicated
CPT/HCPCS: 36415; 70450; 70460; 71046; 80053; 81001; 82550; 82553; 83605; 83735; 84443; 84484; 85025; 85610; 85730; 87040; 87086; 87186; 87400; 94640 ×2; 96360; 96365; 96374; 96375; 99284; J0696; J1200; J1885; J2765; J7030; Q9967

== ENCOUNTER 2017-09-14 15:53 | Inpatient (IN) | payer BC ==
[~2017-09-14] VITALS: Ht 175.3 cm; Wt 142.2 kg
[~2017-09-14 15:53] MED LIST changes: +BACTRIM DS TAB1 EACH PO
--- OUTSIDE RECORDS SUMMARY | 2017-09-14 15:56 | XMS REPORT | Clinical Summary ---
Author Author 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, Obstructive sleep apnea SUPPLY TEACHER syndrome (Primary Dx);Morbid obesity (HCC) 04/06/2017 Hospital Radiology Blanco Farley, Pre-operative Encounter MD clearance;Hypertension, unspecified type;Hyperlipidemia, unspecified hyperlipidemia type;Venous thromboembolism;Snoring 03/26/2017 Hospital Pavan Mckeon Encounter MD Patricia 03/26/2017 Procedure Pass 03/23/2017 Anesthesia Pankaj Abel MD Event 03/22/2017 Hospital Pre-Admission Testing Pavan Mckeon Encounter MD Patricia 03/22/2017 Hospital Pre-Admission Testing Pavan Mckeon Encounter MD Patricia 03/22/2017 Outside Orders Central Scheduling Blanco Farley, Pre-operative clearance MD (Primary Dx);Hypertension, unspecified type;Hyperlipidemia, unspecified hyperlipidemia type;Venous thromboembolism;Snoring after 09/13/2016 Social History Tobacco Use Types Packs/Day Years Used Date Current Every Day Smoker 2 28 Smokeless Tobacco: Never Used Tobacco Cessation: Ready to Quit: Yes; Counseling Given: Yes Comments: handout to be given dos Alcohol Use Drinks/Week oz/Week Comments No Sex Assigned at Date Recorded Not on file Last Filed Vital Signs Vital Sign Reading Time Taken Blood Pressure 132/83 04/11/2017 5:50 PM LUBRICATING MACHINE TENDER Pulse 93 04/11/2017 5:50 PM LUBRICATING MACHINE TENDER Temperature 36.6 C (97.9 F) 04/11/2017 3:25 PM LUBRICATING MACHINE TENDER Respiratory Rate 20 04/11/2017 3:25 PM LUBRICATING MACHINE TENDER Oxygen Saturation 94% 04/11/2017 5:50 PM LUBRICATING MACHINE TENDER Inhaled Oxygen - - Concentration Weight 149.2 kg (328 lb 14.8 oz) 04/10/2017 11:37 AM LUBRICATING MACHINE TENDER Height 175.3 cm (5' 9") 04/10/2017 11:37 AM LUBRICATING MACHINE TENDER Body Mass Index 48.57 04/10/2017 11:37 AM LUBRICATING MACHINE TENDER Plan of Treatment Health Maintenance Due Date Last Done Comments INFLUENZA VACCINE 01/21/2018 Procedures Procedure Name Priority Date/Time Associated Diagnosis Comments CYSTOSCOPY 04/10/2017 Uterine bleeding 1:00 PM LUBRICATING MACHINE TENDER LAPAROSCOPY,CYSTECTOMY/SA 04/10/2017 Uterine bleeding LPINGECTOMY/OOPHORECTOMY 1:00 PM LUBRICATING MACHINE TENDER HYSTERECTOMY,VAGINAL W/ 04/10/2017 Uterine bleeding SALPINGO-OOPHORECTOMY 1:00 PM LUBRICATING MACHINE TENDER after 09/13/2016 Results * INTRAOPERATIVE PATH REPORT - SCAN (05/02/2017 2:11 PM) * RHYTHM STRIP - SCAN (04/17/2017 2:21 PM) * TRANSFUSION SERVICE REPORT - SCAN (04/13/2017 5:44 PM) Only the most recent of 5 results within the time period is included. * POC-Glucose meter (04/11/2017 6:06 PM) Component Value Ref Range POC-Glucose Meter 187 (H)Comment: TESTED AT [address] 70 - 110 mg /dL [facility] [address] Specimen Performing Laboratory Blood [address] [address] * Hemoglobin A1c (04/11/2017 2:25 PM) Component Value Ref Range Hemoglobin A1C 7.0 (H) 4.3 - 6.1 % Specimen Performing Laboratory Blood [address] [address] * CBC with platelet count + automated [...] 1 % Granulocytes-Relative Specimen Performing Laboratory Blood [address] [address] * CBC with platelet count + automated diff (04/11/2017 3:28 AM) Only the most recent of 2 results within the time period is included. Specimen Performing Laboratory Blood Narrative The following orders were created for panel order CBC with platelet count + automated diff. Procedure Abnormality Status --------- - ------ CBC with platelet count ...[[id number]]AbnormalFinal result Please view results for these tests [...] FOR DIALYSIS PATIENTS. Specimen Performing Laboratory Blood [address] [address] * Tissue Exam (04/10/2017 4:55 PM) Component Value Ref Range Case Report Surgical Pathology Report Case: [id number] Authorizing Provider: MikePavankristina, Collected: 04/10/2017 1655 Ordering Location: [facility] PERIOPERATIVE Received: 04/10/2017 1703 SERVICES Pathologist: Marianne [...] PATHOLOGIC CHANGES Signing Pathologist Direct Phone Line: [phone] CPT Code(s) 20738, 36549 CLINICAL HISTORY Abnormal uterine bleed SPECIMEN SOURCE [...] identified within the cervix or uterine body. Farm Labor Contractor sections are submitted as follows: cassette A1-A3, [...] P.M. MICROSCOPIC DESCRIPTION A-C: Performed. Professional component [facility], Department of was performed at Pathology, [address] [place] [address], [place] [address], Specimen Performing Laboratory Tissue - Uterus w/Cervix; [facility] Tissue - Fallopian Tube, [address] [place] [address] Right & Ovary; [place] [address] Fallopian Tube, Left & Ovary * POCT , urine (04/10/2017 1:18 PM) Component Value Ref Range Test Urine, POC Negative Control line present?, Yes POC Background clear?, POC Yes UPT Cassette Lot #, POC [id number] UPT Cassette Expiration 09/20/2018 Date, POC * Prepare RBC (04/09/2017 12:07 PM) Only the most recent of 3 results within the time period is included. Component Value Ref Range Unit ABO B Pos UNIT NUMBER [id number] Status WORK IN PROGRESS Blood Bank Product RED BLOOD CELLS PRODUCT CODE X2461I15 Unit ABO B Pos UNIT NUMBER [id number] Status WORK IN PROGRESS Blood Bank Product RED BLOOD CELLS PRODUCT CODE [id number] Specimen Performing Laboratory [place] * NM myocardial perfusion SPECT, pharm(Lexiscan) (04/09/2017 11:31 AM) Specimen Performing Laboratory GE RIS Narrative FINAL REPORT PROCEDURE:2-Day Stress/Rest MYOCARDIAL PERFUSION SPECT with regadenoson\\XA9\\ CPT CODE:55417 INDICATION:Z01.818, I 10, E 78.5, I 82.90, [...] tracer distribution is normal.6. No previous [facility] study for comparison. NONINVASIVE RISK STRATIFICATION: The above findings are considered low risk (<1% annual mortality rate) based on the following criterion: - Normal or small myocardial perfusion defect at rest or with stress (JAC. 2012;59(9):857-81.) Signed: Hasmukh Lorenzo MD Report Verified Date/Time:04/09/2017 14:36:37 Reading Location: [address] Reading Room Procedure Note Interface, External Ris In - 04/09/2017 2:38 PM LUBRICATING MACHINE TENDER FINAL REPORT PROCEDURE: 2-Day Stress/Rest MYOCARDIAL PERFUSION SPECT with regadenoson\\XA9\\ CPT CODE: 58403 INDICATION: Z01.818, I 10, E 78.5, I [...] distribution is normal. 6. No previous [facility] study for comparison. NONINVASIVE RISK STRATIFICATION: The above findings are considered low risk (<1% annual mortality rate) based on the following criterion: - Normal or small myocardial perfusion defect at rest or with stress (JACC. 2012;59(9):857-81.) Signed: Hasmukh Lorenzo MD Report Verified Date/Time: 04/09/2017 14:36:37 Reading Location: [address] Reading Room * Treadmill tolerance(Non-Nuclear Treadmill) (04/06/2017 10:27 AM) Specimen Performing Laboratory [employer] Narrative Protocol Name Regadenoson Time In Exercise [...] External Ris In - 04/11/2017 1:01 PM LUBRICATING MACHINE TENDER Protocol Name Neptali Time In Exercise Phase [...] 10:48:47 AM Confirmed by MD FERGUSON JORGE ([id number]) on 04/11/2017 1:01:06 PM * Antibody identification [...] POSITIVEComment: Echo 2 Specimen [place]forming [place] [address] * Screen, urine (03/22/2017 5:11 PM) Component Value Ref Range Preg Test, Ur Negative Specimen [place] [address] * Direct AHG (NOÉ)/Direct Liborio (03/22/2017 5:11 PM) Component Value Ref Range Direct AHG-IGG POSITIVEComment: Ig+ Direct AHG-C3B, C3D POSITIVEComment: C3: 1+ Specimen [place] [address] * Comprehensive metabolic panel (03/22/2017 5:11 PM) [...] FOR DIALYSIS PATIENTS. Specimen Performing Laboratory Blood [address] [address] * PT/aPTT (03/22/2017 5:10 PM) Component Value Ref Range Protime 14.4 11.7 - 14.7 seconds INR 1.1 <=5.9 PTT 27.6 22.5 - 36.0 seconds Specimen Performing Laboratory Blood [address] [address] Narrative RECOMMENDED COUMADIN/WARFARIN INR THERAPY RANGES STANDARD DOSE: 2.0 - 3.0 Includes: PROPHYLAXIS for venous thrombosis, systemic embolization; TREATMENT for venous thrombosis and/or pulmonary embolus. HIGH RISK: Target INR is 2.5-3.5 for patients with mechanical heart valves. after 09/13/2016
--- OUTSIDE RECORDS SUMMARY | 2017-09-14 15:56 | XMS REPORT | Continuity of Care Document ---
Author Author [facility] Organization [facility] Address [address] [place] [address] Phone Unavailable Care Team Providers Care Certified Health Education Specialist Name Role Phone JOMAR EARLY MD PCP Insurance Providers Guarantor Tatiana Gregory Address [address] [address] Email NONE Payer [facility] Ppo Policy Number [id number] Subscriber's Name Ade Millan Relationship 01 Group Number [id number] Group Name [employer] Effective Date 16 Advance Directives Directive Response Recorded Date/Time Does the patient have an advance directive? No 01/09/17 10:30pm If yes, is advance directive on file with [facility]? No 01/09/17 10:30pm If not on file with [facility] will patient provide a copy? No 01/09/17 10:30pm Do you have a Directive to Physician? No 06/24/17 7:50pm Do you have a Medical Power of Olive Grader? No 06/24/17 7:50pm Do you have an out of hospital Do Not Resuscitate Order? No 06/24/17 7:50pm Do you have any special needs we should be aware of? No 06/24/17 7:50pm Do you have a support person here with you today? No 06/24/17 7:50pm Did patient receive Notice of Privacy Practices? Yes 06/24/17 7:50pm Did patient receive patient rights and responsibilities? Yes 06/24/17 7:50pm Problems No problem information available. Medications Current Home Medications Medication Dose Units Route Directions Days Qty Instructions Start Date Aripiprazole (Abilify) 5 Mg Tablet 15 Mg Oral Bedtime 30 Tab Atenolol 50 Mg Tablet 50 Mg Oral Daily Bupropion Hcl (Bupropion Xl) 150 Mg Tab.er.24h 2 Tab Oral Daily Cetirizine Hcl 10 Mg Tablet 1 Tab Peg Tube Daily Citalopram Hydrobromide (Celexa) 40 Mg Tablet 1 Tab Oral Daily Diclofenac Epolamine (Flector) 1 Each Adh..patch 3 % Topically Four Times Daily Ergocalciferol (Vitamin D2) (Vitamin D2) 50,000 Unit Capsule 1 Cap Oral Weekly Etodolac 500 Mg Tablet 500 Mg Oral Twice Daily With Meals Fenofibrate Nanocrystallized (Fenofibrate) 145 Mg Tablet 160 Mg Oral Daily Ferrous Sulfate 325 Mg Tablet 1 Tab Oral Twice A Day Folic Acid 1 Mg Tablet 1 Mg Oral Daily 30 Tab Furosemide (Lasix) 20 Mg Tablet 20 Mg Oral Daily 30 Tab Furosemide (Lasix) 20 Mg Tablet 20 Mg Oral Twice A Day as needed for Prn 30 Tab Gabapentin 300 Mg Capsule 300 Mg Oral Three Times A Day 60 Cap Hydrochlorothiazide 25 Mg Tablet 25 Mg Oral Daily 30 Tab Levetiracetam 500 Mg Tablet 3 Tab Oral Twice A Day Lisinopril 10 Mg Tablet 20 Mg Oral Daily 30 Tab Medroxyprogesterone Acetate 10 Mg Tablet 10 Ng Oral Daily Metoclopramide Hcl 10 Mg Tablet 10 Mg Oral Four Times Daily Niacin 500 Mg Tabsr 250 Mg Oral Daily 30 Tab Omeprazole 40 Mg Capsule.dr 40 Mg Oral Twice A Day Potassium Chloride 10 Meq Tab.er.prt 10 Meq Oral Daily Pravastatin Sodium 40 Mg Tablet 1 Tab Oral Daily Prednisone Micronized (Prednisone) 5 Gm Powder 5 Mg Oral Daily Pregabalin (Lyrica) 75 Mg Cap 225 Mg Oral Twice A Day 30 Cap Rivaroxaban (Xarelto) 20 Mg Tablet 1 Tab Oral Daily Spironolactone 25 Mg Tablet 25 Mg Oral Daily 60 Tab Sucralfate (Carafate) 1 Gm/10 Ml Oral.susp 1 Gm Oral Three Times A Day Social History Social History Problem Response Recorded Date/Time Onset Date Status Hx Psychiatric Problems No 01/09/2017 10:30pm Not Applicable Not Applicable Hx Eating Disorder No 01/09/2017 10:30pm Not Applicable Not Applicable Hx Substance Use Disorder No 01/09/2017 10:30pm Not Applicable Not Applicable Hx Depression No 01/09/2017 10:30pm Not Applicable Not Applicable Hx Alcohol Use No 01/09/2017 10:30pm Not Applicable Not Applicable Hx Substance Use Treatment No 01/09/2017 10:30pm Not Applicable Not Applicable Hx Physical Abuse No 01/09/2017 10:30pm Not Applicable Not Applicable Smoking Status Start Date Stop Date Current every day smoker Hospital Discharge Instructions No hospital discharge instruction information available. Plan of Care Discharge Date 06/25/17 12:30am Disposition HOME, SELF-CARE Condition at Discharge Stable Instructions/Education Provided Seizures Forms Provided Work/School Excuse Prescriptions See Medication Section Referrals JOMAR EARLY MD Address: [address] [place] [id number] Additional Instructions/Education FOLLOW UP WITH NEUROLOGIST AND PRIMARY CARE TOMORROW. TAKE ALL MEDICATION DIRECTED. Functional Status No functional status information available. Allergies, Adverse Reactions, Alerts Allergen Type Severity Reaction Status Last Updated Penicillin Allergy Severe Active 01/10/17 Latex Allergy Severe Active 01/10/17 Immunizations No immunization information available. Vital Signs Acute Vital Signs Vital Response Date/Time Temperature (Fahrenheit) 97.2 degrees F (97.6 - 99.5) 01/12/2017 3:59pm Pulse Pulse Rate (adult) 78 bpm (60 - 90) 06/25/2017 12:26am Respiratory Rate 20 bpm (12 - 24) 06/25/2017 12:26am Blood Pressure 119/63 mm Hg 01/12/2017 3:59pm Height 5 ft 9 in 06/24/2017 7:55pm Weight 300 lb 06/24/2017 7:55pm Body Mass Index 44.3 kg/m^2 06/24/2017 7:55pm Results Laboratory Results Test Name Result Units Flags Reference Collection Date/Time Result Date/ Time Comments Direct Bilirubin 0.1 mg/dL 0.0-5.0 01/09/2017 5:08pm 01/09/2017 9:16pm Vancomycin Level Trough 19.1 ug/mL *H 5.0-10.0 01/12/2017 12:20am 2016 12:47am Results called to TESSA PANDYA RN at 0047 on 01/12/17 by Telly Hilliard. RB OK. White Blood Count 13.18 x10e3/uL H 4.8-10.8 06/24/2017 8:35pm 2017 9:06pm Red Blood Count 4.37 x10e6/uL 3.6-5.1 06/24/2017 8:35pm 06/24/2017 9: 06pm Hemoglobin 14.5 g/dL 12.0-16.0 06/24/2017 8:35pm 06/24/2017 9:06pm Hematocrit 41.2 % 34.2-44.1 06/24/2017 8:35pm 06/24/2017 9:06pm Mean Corpuscular Volume 94.3 fL 81-99 06/24/2017 8:35pm 06/24/2017 9: 06pm Mean Corpuscular Hemoglobin 33.2 pg H 28-32 06/24/2017 8:35pm 2017 9:06pm Mean Corpuscular Hemoglobin Concent 35.2 g/dL H 31-35 06/24/2017 8:35pm 06/24/2017 9:06pm Red Cell Distribution Width 13.5 % 11.7-14.4 06/24/2017 8:35pm 2017 9:06pm Platelet Count 193 x10e3/uL 140-360 06/24/2017 8:35pm 06/24/2017 9: 06pm Neutrophils (%) (Auto) 84.6 % H 38.7-80.0 06/24/2017 8:35pm 06/24/2017 9 :06pm Lymphocytes (%) (Auto) 8.1 % L 18.0-39.1 06/24/2017 8:35pm 06/24/2017 9: 06pm Monocytes (%) (Auto) 5.6 % 4.4-11.3 06/24/2017 8:35pm 06/24/2017 9: 06pm Eosinophils (%) (Auto) 0.7 % 0.0-6.0 06/24/2017 8:35pm 06/24/2017 9: 06pm Basophils (%) (Auto) 0.5 % 0.0-1.0 06/24/2017 8:35pm 06/24/2017 9:06pm IM GRANULOCYTES % 0.5 % 0.0-1.0 06/24/2017 8:35pm 06/24/2017 9:06pm Neutrophils # (Auto) 11.2 H 2.1-6.9 06/24/2017 8:35pm 06/24/2017 9: 06pm Lymphocytes # (Auto) 1.1 1.0-3.2 06/24/2017 8:35pm 06/24/2017 9:06pm Monocytes # (Auto) 0.7 0.2-0.8 06/24/2017 8:35pm 06/24/2017 9:06pm Eosinophils # (Auto) 0.1 0.0-0.4 06/24/2017 8:35pm 06/24/2017 9:06pm Basophils # (Auto) 0.1 0.0-0.1 06/24/2017 8:35pm 06/24/2017 9:06pm Absolute Immature Granulocyte (auto 0.07 x10e3/uL 0-0.1 06/24/2017 8: 35pm 06/24/2017 9:06pm Prothrombin Time 14.7 seconds H 11.9-14.5 06/24/2017 8:35pm 06/24/2017 9 :28pm Prothromb Time International Ratio 1.24 06/24/2017 8:35pm 2017 9:28pm Oral Anticoagulant Therapy INR Values: 1. Low Intensity Therapy 1.5 - 2.0 2. Moderate Intensity Therapy 2.0 - 3.0 3. High Intensity Therapy(1) 2.5 - 3.5 4. High Intensity Therapy(2) 3.0 - 4.0 5. Panic Value INR > 5.0 Activated Partial Thromboplast Time 27.4 seconds 23.8-35.5 06/24/2017 8: 35pm 06/24/2017 9:28pm Urine Color YELLOW YELLOW 06/24/2017 10:20pm 06/24/2017 10:33pm Urine Clarity SL CLOUDY CLEAR 06/24/2017 10:20pm 06/24/2017 10:33pm Urine Specific [place] 1.015 1.010-1.025 06/24/2017 10:20pm 2017 10:33pm Urine pH 6 5 - 7 06/24/2017 10:20pm 06/24/2017 10:33pm Urine Leukocyte Esterase TRACE H NEGATIVE 06/24/2017 10:20pm 2017 10:33pm Urine Nitrite POSITIVE H NEGATIVE 06/24/2017 10:20pm 06/24/2017 10: 33pm Urine Protein NEGATIVE NEGATIVE 06/24/2017 10:20pm 06/24/2017 10: 33pm Urine Glucose (UA) 1+ H NEGATIVE 06/24/2017 10:20pm 06/24/2017 10: 33pm Urine Ketones NEGATIVE NEGATIVE 06/24/2017 10:20pm 06/24/2017 10: 33pm Urine Urobilinogen 0.2 mg/dL 0.2 - 1 06/24/2017 10:20pm 06/24/2017 10: 33pm Urine Bilirubin NEGATIVE NEGATIVE 06/24/2017 10:20pm 06/24/2017 10: 33pm Urine Blood 1+ H NEGATIVE 06/24/2017 10:20pm 06/24/2017 10:33pm Urine WBC 21-50 /HPF H 0-5 06/24/2017 10:20pm 06/24/2017 10:49pm Urine RBC 6-10 /HPF H 0-5 06/24/2017 10:20pm 06/24/2017 10:49pm Urine Bacteria MANY /HPF H NONE 06/24/2017 10:20pm 06/24/2017 10:49pm Urine Epithelial Cells FEW /LPF NONE 06/24/2017 10:20pm 06/24/2017 10: 49pm Sodium Level 135 mmol/L L 136-145 06/24/2017 8:35pm 06/24/2017 9:34pm Potassium Level 4.3 mmol/L 3.5-5.1 06/24/2017 8:35pm 06/24/2017 9:34pm Chloride Level 100 mmol/L 98-107 06/24/2017 8:35pm 06/24/2017 9:34pm Influenza Virus Types A,B Antigen NEGATIVE NEGATIVE 06/24/2017 10: 30pm 06/24/2017 10:56pm Carbon Dioxide Level 23 mmol/L 22-06/24/2017 8:35pm 06/24/2017 9: 34pm Anion Gap 16.3 mmol/L H 8-16 06/24/2017 8:35pm 06/24/2017 9:34pm Blood Urea Nitrogen 25 mg/dL 7-26 06/24/2017 8:35pm 06/24/2017 9:34pm Creatinine 1.00 mg/dL 0.57-1.11 06/24/2017 8:35pm 06/24/2017 9:34pm BUN/Creatinine Ratio 25 6-25 06/24/2017 8:35pm 06/24/2017 9:34pm Estimat Glomerular Filtration Rate 59 ML/MIN L 60- 06/24/2017 8:35pm 07/2017 9:34pm Ranges were taken from the National Kidney Disease Education Program and the National Kidney Foundation literature. Reference ranges: 60 or greater: Normal 16-59 (for 3 consecutive months): Chronic kidney disease 15 or less: Kidney failure Glucose Level 190 mg/dL H 74-118 06/24/2017 8:35pm 06/24/2017 9:34pm Calcium Level 9.8 mg/dL 8.4-10.2 06/24/2017 8:35pm 06/24/2017 9:34pm Lactic Acid Level 17.3 MG/DL 4.5-19.8 06/24/2017 8:35pm 06/24/2017 9: 34pm Magnesium Level 1.2 MG/DL L 1.3-2.1 06/24/2017 8:35pm 06/24/2017 9:34pm Total Bilirubin 0.8 mg/dL 0.2-1.2 06/24/2017 8:35pm 06/24/2017 9:34pm Aspartate Amino Transf (AST/SGOT) 14 IU/L 5-34 06/24/2017 8:35pm 2017 9:34pm Alanine Aminotransferase (ALT/SGPT) 29 IU/L 0-55 06/24/2017 8:35pm 07/2017 9:34pm Total Protein 7.9 g/dL 6.5-8.1 06/24/2017 8:35pm 06/24/2017 9:34pm Albumin 3.8 g/dL 3.5-5.0 06/24/2017 8:35pm 06/24/2017 9:34pm Globulin 4.1 g/dL H 2.3-3.5 06/24/2017 8:35pm 06/24/2017 9:34pm Albumin/Globulin Ratio 0.9 0.8-2.0 06/24/2017 8:35pm 06/24/2017 9: 34pm Alkaline Phosphatase 66 IU/L 40-150 06/24/2017 8:35pm 06/24/2017 9: 34pm Creatine Kinase 84 IU/L 29-168 06/24/2017 8:35pm 06/24/2017 9:34pm Creatine Kinase MB 1.20 ng/mL 0-5.0 06/24/2017 8:35pm 06/24/2017 10: 02pm Troponin I 0.008 ng/mL 0-0.300 06/24/2017 8:35pm 06/24/2017 10:02pm Thyroid Stimulating Hormone (TSH) 0.241 uIU/mL L 0.350-4.940 06/24/2017 8 :35pm 06/24/2017 10:02pm Procedures Procedure Status Date Provider(s) INSERTION OF INFUSION DEV INTO SUP VENA CAVA, PERC APPROACH Completed JOMAR EARLY MD MRI joint lwr extr w/o&w/dye Active 09/29/16 RICHARD CUEVAS MD MRI non-joint region of extremity lower wo then w contrast Active 09/29/16 RICHARD CUEVAS MD Computed tomography of abdomen and pelvis with contrast Active 01/09/17 JOMAR EARLY MD Computed tomography of brain without radiopaque contrast Active 06/24/17 SILVESTRE WATTERS MD X-ray of chest, two views Active 06/24/17 SILVESTRE WATTERS MD Computed tomography of brain with contrast Active 06/24/17 SILVESTRE WATTERS MD Encounters Encounter Location Arrival/Admit Date Discharge/Depart Date Attending Provider Registered Emergency Room [facility] 06/24/17 7:51pm SILVESTRE WATTERS MD Discharged Inpatient [facility] 01/09/17 8:07pm 01/12/17 7:15pm JOMAR EARLY MD Registered Clinic [facility] 09/29/16 3:08pm IRCHARD CUEVAS MD Registered Clinic [facility] 09/21/16 8:42am RICHARD CUEVAS MD
[2017-09-14] MEDS ORDERED: KETOROLAC TROMETHAMINE 30 MG/ML VIAL IV STA (16:44)
[2017-09-14] MEDS ORDERED: SODIUM CHLORIDE FLUSH 10 ML SYR INJ PRN (16:45)
[2017-09-14] MEDS ORDERED: PROMETHAZINE 12.5MG/ NACL 0.9% 12.5 MG/50 ML BAG IV PRN (17:30)
[2017-09-14] MEDS ORDERED: PROMETHAZINE 12.5MG/ NACL 0.9% 12.5 MG/50 ML BAG IV ONE (17:30)
[2017-09-14] MEDS ORDERED: HYDROMORPHONE 1MG/1ML INJ IV PRN (17:30)
[2017-09-14] MEDS ORDERED: VANCOMYCIN 1GM/NS 250 ML 250 ML IV ONE (17:30)
[2017-09-14] MEDS ORDERED: HYDROMORPHONE 2MG/ML INJ IV ONE (17:30)
[2017-09-14] MEDS ORDERED: LEVOFLOXACIN 750MG/D5W 150ML 150 ML IV ONE (17:30)
[2017-09-14 17:31] LABS: BASOPHILS # (AUTO) 0.1 (0.0-0.1); BASOPHILS % 0.9 % (0.0-1.0); EOSINOPHILS # (AUTO) 0.3 (0.0-0.4); EOSINOPHILS % 2.2 % (0.0-6.0); HEMATOCRIT 42.3 % (34.2-44.1); LYMPHOCYTES % 23.9 % (18.0-39.1); MEAN CORPUSCULAR HEMOGLOBIN 32.8 pg (28-32); MEAN CORPUSCULAR HGB CONC 35.5 g/dL (31-35); MEAN CORPUSCULAR VOLUME 92.4 fL (81-99); MONOCYTES # (AUTO) 0.7 (0.2-0.8); MONOCYTES % 5.1 % (4.4-11.3); NEUTROPHILS # (AUTO) 8.6 (2.1-6.9); NEUTROPHILS % 67.4 % (38.7-80.0); PLATELET COUNT 251 x10e3/uL (140-360); RED BLOOD COUNT 4.58 x10e6/uL (3.6-5.1); RED CELL DISTRIBUTION WIDTH 12.6 % (11.7-14.4)
[2017-09-14 17:51] LABS: ALANINE AMINOTRANSFERASE 33 IU/L (0-55); ALBUMIN 3.9 g/dL (3.5-5.0); ALKALINE PHOSPHATASE 73 IU/L (40-150); ANION GAP 17.7 mmol/L (8-16); BLOOD UREA NITROGEN 17 mg/dL (7-26); BUN/CREATININE RATIO 19 (6-25); CALCIUM 9.4 mg/dL (8.4-10.2); CARBON DIOXIDE 25 mmol/L (22-29); CHLORIDE 97 mmol/L (98-107); CREATININE, SERUM 0.88 mg/dL (0.57-1.11); EST GLOMERULAR FILTRATION RATE > 60 ML/MIN (60-); GLUCOSE 223 mg/dL (74-118); POTASSIUM 3.7 mmol/L (3.5-5.1); SODIUM 136 mmol/L (136-145)
--- OUTSIDE RECORDS SUMMARY | 2017-09-14 18:55 | XMS REPORT | Clinical Summary ---
Author Author MALORIE Idea DeviceSt. 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 SERVICES TECHNICIAN, Obstructive sleep apnea EMERGENCY MEDICAL SERVICE MANAGER syndrome (Primary Dx);Morbid obesity (HCC) 04/06/2017 Hospital [...] Taken Blood Pressure 132/83 04/11/2017 5:50 PM HIGH PRESSURE OPERATOR Pulse 93 04/11/2017 5:50 PM HIGH PRESSURE OPERATOR Temperature 36.6 C (97.9 F) 04/11/2017 3:25 PM HIGH PRESSURE OPERATOR Respiratory Rate 20 04/11/2017 3:25 PM HIGH PRESSURE OPERATOR Oxygen Saturation 94% 04/11/2017 5:50 PM HIGH PRESSURE OPERATOR Inhaled Oxygen - - Concentration Weight 149.2 kg (328 lb 14.8 oz) 04/10/2017 11:37 AM HIGH PRESSURE OPERATOR Height 175.3 cm (5' 9") 04/10/2017 11:37 AM HIGH PRESSURE OPERATOR Body Mass Index 48.57 04/10/2017 11:37 AM HIGH PRESSURE OPERATOR Plan of Treatment Health Maintenance Due Date Last Done Comments INFLUENZA VACCINE 01/21/2018 Procedures Procedure Name Priority Date/Time Associated Diagnosis Comments CYSTOSCOPY 04/10/2017 Uterine bleeding 1:00 PM HIGH PRESSURE OPERATOR LAPAROSCOPY,CYSTECTOMY/SA 04/10/2017 Uterine bleeding LPINGECTOMY/OOPHORECTOMY 1:00 PM HIGH PRESSURE OPERATOR HYSTERECTOMY,VAGINAL W/ 04/10/2017 Uterine bleeding SALPINGO-OOPHORECTOMY 1:00 PM HIGH PRESSURE OPERATOR after 09/13/2016 Results * INTRAOPERATIVE PATH REPORT - SCAN (05/02/2017 2:11 PM) * RHYTHM STRIP - SCAN (04/17/2017 2:21 PM) * TRANSFUSION SERVICE REPORT - SCAN (04/13/2017 5:44 PM) Only the most recent of 5 results within the time period is included. * POC-Glucose meter (04/11/2017 6:06 PM) Component Value Ref Range POC-Glucose Meter 187 (H)Comment: TESTED AT [address] 70 - 110 mg /dL [facility] [id number] Specimen Performing Laboratory Blood [address] [address] * Hemoglobin A1c (04/11/2017 2:25 PM) Component Value Ref Range Hemoglobin A1C 7.0 (H) 4.3 - 6.1 % Specimen Performing Laboratory Blood [address] [address] * CBC with platelet count + automated [...] 1 % Granulocytes-Relative Specimen Performing Laboratory Blood [address] [address] * CBC with platelet count + automated diff (04/11/2017 3:28 AM) Only the most recent of 2 results within the time period is included. Specimen Performing Laboratory Blood Narrative The following orders were created for panel order CBC with platelet count + automated diff. Procedure Abnormality Status --------- - ------ CBC with platelet count ...[[id number]]AbnormalFinal result Please view results for these tests [...] FOR DIALYSIS PATIENTS. Specimen Performing Laboratory Blood [address] [address] * Tissue Exam (04/10/2017 4:55 PM) Component Value Ref Range Case Report Surgical Pathology Report Case: [id number] Authorizing Provider: MikePavankristina, Collected: 04/10/2017 1655 Ordering Location: [facility] Received: 04/10/2017 1703 SERVICES Pathologist: [...] PATHOLOGIC CHANGES Signing Pathologist Direct Phone Line: [phone] CPT Code(s) 34796, 07701 CLINICAL HISTORY Abnormal uterine bleed SPECIMEN SOURCE [...] identified within the cervix or uterine body. [employer] sections are submitted as follows: cassette A1-A3, [...] P.M. MICROSCOPIC DESCRIPTION A-C: Performed. Professional component [facility], Department of was performed at Pathology, [address] [place] [address], [place] [address], Specimen Performing Laboratory Tissue - Uterus w/Cervix; [facility] Tissue - Fallopian Tube, [address] [place] [address] Right & Ovary; [place] [address] Fallopian Tube, Left & Ovary * POCT , urine (04/10/2017 1:18 PM) Component Value Ref Range Test Urine, POC Negative Control line present?, Yes POC Background clear?, POC Yes UPT Cassette Lot #, POC [id number] UPT Cassette Expiration 09/20/2018 Date, POC * Prepare RBC (04/09/2017 12:07 PM) Only the most recent of 3 results within the time period is included. Component Value Ref Range Unit ABO B Pos UNIT NUMBER [id number] Status WORK IN PROGRESS Blood Bank Product RED BLOOD CELLS PRODUCT CODE U0813A40 Unit ABO B Pos UNIT NUMBER [id number] Status WORK IN PROGRESS Blood Bank Product RED BLOOD CELLS PRODUCT CODE [id number] Specimen Performing Laboratory [facility] [place] * NM myocardial perfusion SPECT, pharm(Lexiscan) (04/09/2017 11:31 AM) Specimen Performing Laboratory GE RIS Narrative FINAL REPORT PROCEDURE:2-Day Stress/Rest MYOCARDIAL PERFUSION SPECT with regadenoson\\XA9\\ CPT CODE:76698 INDICATION:Z01.818, I 10, E 78.5, I 82.90, [...] Extracardiac tracer distribution is normal.6. No previous [facility] study for comparison. NONINVASIVE RISK STRATIFICATION: The above findings are considered low risk (<1% annual mortality rate) based on the following criterion: - Normal or small myocardial perfusion defect at rest or with stress (JAC. 2012;59(9):857-81.) Signed: Hasmukh Lorenzo MD Report Verified Date/Time:04/09/2017 14:36:37 Reading Location: [address] Reading Room Procedure Note Interface, External Ris In - 04/09/2017 2:38 PM HIGH PRESSURE OPERATOR FINAL REPORT PROCEDURE: 2-Day Stress/Rest MYOCARDIAL PERFUSION SPECT with regadenoson\\XA9\\ CPT CODE: 78772 INDICATION: Z01.818, I 10, E 78.5, I [...] tracer distribution is normal. 6. No previous [facility] study for comparison. NONINVASIVE RISK STRATIFICATION: The above findings are considered low risk (<1% annual mortality rate) based on the following criterion: - Normal or small myocardial perfusion defect at rest or with stress (JACC. 2012;59(9):857-81.) Signed: Hasmukh Lorenzo MD Report Verified Date/Time: 04/09/2017 14:36:37 Reading Location: [address] Reading Room * Treadmill tolerance(Non-Nuclear Treadmill) (04/06/2017 10:27 AM) Specimen Performing Laboratory [email or web address] Narrative Protocol Name Regadenoson Time In Exercise [...] External Ris In - 04/11/2017 1:01 PM HIGH PRESSURE OPERATOR Protocol Name Neptali Time In Exercise Phase [...] 10:48:47 AM Confirmed by MD FERGUSON JORGE ([id number]) on 04/11/2017 1:01:06 PM * Antibody identification (03/23/2017 10:15 AM) Component Value Ref Range ANTIBODY ID (BEAKER) WARM AUTO AB Antibody Consult SIGNED OUTComment: Warm panagglutinin detected, ok to transfuse incompatible blood.Electronic Signature: Elton Csear M.D. Specimen Performing Laboratory [facility] [place] * Type and screen, automated (03/22/2017 5:11 PM) Component Value Ref Range ABO/RH AUTOMATED (BEAKER) B POSITIVE Ab Scrn POSITIVEComment: Echo 2 Specimen [place] [address] * Screen, urine (03/22/2017 5:11 PM) Component Value Ref Range Preg Test, Ur Negative Specimen Performing [place] [address] * Direct AHG (NOÉ)/Direct Liborio (03/22/2017 5:11 PM) Component Value Ref Range Direct AHG-IGG POSITIVEComment: Ig+ Direct AHG-C3B, C3D POSITIVEComment: C3: 1+ Specimen [place] [address] * Comprehensive metabolic panel (03/22/2017 5:11 PM) [...] FOR DIALYSIS PATIENTS. Specimen Performing Laboratory Blood [address] [address] * PT/aPTT (03/22/2017 5:10 PM) Component Value Ref Range Protime 14.4 11.7 - 14.7 seconds INR 1.1 <=5.9 PTT 27.6 22.5 - 36.0 seconds Specimen Performing Laboratory Blood [address] [address] Narrative RECOMMENDED COUMADIN/WARFARIN INR THERAPY RANGES STANDARD DOSE: 2.0 - 3.0 Includes: PROPHYLAXIS for venous thrombosis, systemic embolization; TREATMENT for venous thrombosis and/or pulmonary embolus. HIGH RISK: Target INR is 2.5-3.5 for patients with mechanical heart valves. after 09/13/2016
[2017-09-14] MEDS: HYDROMORPHONE 2MG/ML INJ IV PRN ×2 (19:05→22:17)
[2017-09-14] MEDS: SODIUM CHLORIDE 0.9% 1000ML 1,000 ML IV SCH (20:19)
[2017-09-14 21:40] VITALS: BP 130/77
[2017-09-14] MEDS ORDERED: DEXTROSE 50% SYRINGE 50 ML IV PRN ×3 (23:15→23:30)
[2017-09-15] VITALS (9 sets, daily range): BP systolic 118–140; BP diastolic 60–84
[2017-09-15] MEDS: HYDROMORPHONE 2MG/ML INJ IV PRN ×3 (01:17→09:15)
[2017-09-15] MEDS: SODIUM CHLORIDE 0.9% 1000ML 1,000 ML IV SCH ×3 (05:45→17:30)
[2017-09-15 07:26] LABS: BASOPHILS # (AUTO) 0.1 (0.0-0.1); EOSINOPHILS # (AUTO) 0.3 (0.0-0.4); EOSINOPHILS % 3.8 % (0.0-6.0); LYMPHOCYTES # (AUTO) 2.4 (1.0-3.2); LYMPHOCYTES % 27.4 % (18.0-39.1); MEAN CORPUSCULAR HEMOGLOBIN 32.9 pg (28-32); MEAN CORPUSCULAR VOLUME 93.9 fL (81-99); MONOCYTES # (AUTO) 0.6 (0.2-0.8); MONOCYTES % 6.3 % (4.4-11.3); NEUTROPHILS # (AUTO) 5.4 (2.1-6.9); NEUTROPHILS % 60.7 % (38.7-80.0); PLATELET COUNT 233 x10e3/uL (140-360); RED BLOOD COUNT 4.26 x10e6/uL (3.6-5.1); RED CELL DISTRIBUTION WIDTH 12.7 % (11.7-14.4)
[2017-09-15] MEDS ORDERED: INSULIN REGULAR, HUMAN 100 UNIT/1 ML 3ML VIAL SQ SCH (07:30)
[2017-09-15] MEDS ORDERED: LEVETIRACETAM 500 MG TAB PO SCH (09:00)
[2017-09-15] MEDS: FENOFIBRATE 160 MG PO SCH (09:00)
[2017-09-15] MEDS ORDERED: DICLOFENAC EPOLAMINE 1.3% PATCH TP SCH ×2 (09:00→10:00)
[2017-09-15] MEDS ORDERED: NIACIN 500 MG TABSR PO SCH (09:00)
[2017-09-15] MEDS: INSULIN REGULAR, HUMAN 100 UNIT/1 ML 3ML VIAL SQ SCH ×4 (09:08→21:05)
[2017-09-15] MEDS ORDERED: DIPHENHYDRAMINE HCL 25 MG CAP PO PRN (09:30)
[2017-09-15] MEDS ORDERED: HYDRALAZINE HCL 20 MG/ML VIAL IV PRN (09:45)
[2017-09-15] MEDS: GABAPENTIN 300 MG CAP PO SCH ×3 (10:31→21:05)
[2017-09-15] MEDS: LISINOPRIL 20 MG TAB PO SCH (10:31)
[2017-09-15] MEDS: PANTOPRAZOLE SOD 40 MG TABEC PO SCH ×2 (10:31→17:10)
[2017-09-15] MEDS: PREGABALIN 75 MG CAP PO SCH ×2 (10:31→17:10)
[2017-09-15] MEDS: BUPROPION HCL 150 MG TABCR PO SCH (10:31)
[2017-09-15] MEDS: ATENOLOL 50 MG TAB PO SCH (10:31)
[2017-09-15] MEDS: FUROSEMIDE 20 MG TAB PO SCH (10:31)
[2017-09-15] MEDS: FOLIC ACID 1 MG TAB PO SCH (10:32)
[2017-09-15] MEDS: SPIRONOLACTONE 25 MG TAB PO SCH (10:32)
[2017-09-15] MEDS: CITALOPRAM HYDROBROMIDE 20 MG TAB PO SCH (10:32)
[2017-09-15] MEDS: POTASSIUM CHLORIDE 10 MEQ TABCR PO SCH (10:32)
[2017-09-15] MEDS: HYDROCHLOROTHIAZIDE 25 MG TAB PO SCH (10:32)
[2017-09-15] MEDS: VANCOMYCIN 1GM/NS 250 ML 250 ML IV SCH ×2 (10:32→21:05)
[2017-09-15] MEDS: DICLOFENAC EPOLAMINE 1.3% PATCH TP SCH ×2 (10:32→22:15)
[2017-09-15] MEDS: HYDROCODONE/APAP 10MG-325MG TAB PO PRN (10:35)
[2017-09-15] MEDS: SUCRALFATE 1 GM/10 ML SUSP PO SCH ×2 (12:30→17:10)
[2017-09-15] MEDS: METOCLOPRAMIDE HCL 10 MG TAB PO SCH ×3 (12:30→21:05)
[2017-09-15] MEDS: MORPHINE SULFATE 2 MG/ML SYR IV PRN ×2 (13:05→21:05)
[2017-09-15] MEDS ORDERED: CEFEPIME 1GM/NS 0.9% 50 ML 50 ML IV SCH (14:00)
--- NOTE | 2017-09-15 15:47 | Consultation ---
DATE OF CONSULTATION: September 15, 2017 REASON FOR CONSULTATION: Cellulitis of the left lower extremity. HISTORY OF PRESENT ILLNESS: This patient is well known to me. She is a 47-year-old white female, morbidly obese patient. Her BMI is 46.3. The patient has having recurrent infection in her leg with swelling with pain. The patient comes into my office with redness and swelling of her leg. I thought she probably had some type of arthritis so she was given steroids, a Medrol pack. She is telling me she started Medrol Gagandeep with improvement initially, but the next day she started having redness and swelling in the leg with pain so she came here. Patient is being admitted and infectious disease was consulted. The patient has had multiple admissions before with left leg infection. She does have underlying history of being a morbidly obese patient. PAST MEDICAL HISTORY: History of hypertension, history of seizure disorder, history of DVT in 2016, pulmonary embolism in 2017, lymphedema. PAST SURGICAL HISTORY: Removal of meningioma in January 2016 x2. SOCIAL HISTORY: Does not smoke and no drug abuse or alcohol abuse. FAMILY HISTORY: Significant for diabetes mellitus. REVIEW OF SYSTEMS: At present time. HEENT: There is no headache, visual changes or hearing changes. GI: There is no nausea, no vomiting and no diarrhea. NEURO: There is no seizure activity. Laboratory data reviewed and when she first came white count 12.7, hemoglobin 15, hematocrit 42. Her sodium 136, potassium 3.7, creatinine 0.88. MEDICATION LIST: Reviewed. She is currently on morphine, Reglan, Aldactone, folic acid. She was started on vancomycin and she is also on Lyrica, Neurontin, lisinopril, Keppra. She is also on prednisone 5 mg daily. PHYSICAL EXAMINATION: GENERAL: She is currently alert, oriented and does not seem to be in acute distress. VITALS: Stable, currently afebrile. HEENT: She is not icteric. NECK: Supple. Obese. CHEST: Few crackles at the bases. COR; S1 and S2. ABDOMEN: Soft, obese. EXTREMITIES: In the leg, there is some erythema and edema. IMPRESSION: 1. Cellulitis of the leg in a patient who is a morbidly obese patient. I agree with vancomycin. 2. Neuropathy. 3. Lymphedema. 4. Recurrent inflammation of her joints. PLAN: Will obtain ROMAN, rheumatoid factor, sed rate, C-reactive protein. Will follow with you. Job#: [id number] ABDIEL
[2017-09-15] MEDS: ETODOLAC 500 MG PO SCH (16:30)
[2017-09-15] MEDS: RIVAROXABAN 20 MG TABLET PO SCH (17:10)
[2017-09-15] MEDS: FERROUS SULFATE 325 MG TAB PO SCH (17:10)
[2017-09-15] MEDS: LEVETIRACETAM 500 MG TAB PO SCH (17:10)
[2017-09-15] MEDS: PRAVASTATIN 20 MG TAB PO SCH (21:05)
[2017-09-15] MEDS: ARIPIPRAZOLE 5 MG TABLET PO SCH (21:05)
[2017-09-16] VITALS: BP 140/91
[2017-09-16] MEDS: HYDROCODONE/APAP 10MG-325MG TAB PO PRN ×3 (01:08→23:25)
[2017-09-16] MEDS: SODIUM CHLORIDE 0.9% 1000ML 1,000 ML IV SCH ×3 (03:45→17:28)
[2017-09-16] MEDS: MORPHINE SULFATE 2 MG/ML SYR IV PRN ×3 (05:14→20:25)
[2017-09-16 07:05] LABS: BASOPHILS # (AUTO) 0.1 (0.0-0.1); EOSINOPHILS # (AUTO) 0.4 (0.0-0.4); EOSINOPHILS % 3.7 % (0.0-6.0); HEMATOCRIT 41.6 % (34.2-44.1); HEMOGLOBIN 14.5 g/dL (12.0-16.0); LYMPHOCYTES % 19.7 % (18.0-39.1); MEAN CORPUSCULAR HEMOGLOBIN 32.7 pg (28-32); MEAN CORPUSCULAR HGB CONC 34.9 g/dL (31-35); MEAN CORPUSCULAR VOLUME 93.7 fL (81-99); MONOCYTES # (AUTO) 0.5 (0.2-0.8); MONOCYTES % 4.9 % (4.4-11.3); NEUTROPHILS % 69.9 % (38.7-80.0); PLATELET COUNT 233 x10e3/uL (140-360); RED BLOOD COUNT 4.44 x10e6/uL (3.6-5.1); RED CELL DISTRIBUTION WIDTH 12.7 % (11.7-14.4)
[2017-09-16 07:26] LABS: BLOOD UREA NITROGEN 12 mg/dL (7-26); BUN/CREATININE RATIO 16 (6-25); CALCIUM 9.4 mg/dL (8.4-10.2); CARBON DIOXIDE 27 mmol/L (22-29); CHLORIDE 95 mmol/L (98-107); CHOL/HDL RATIO 5.5 (3.0-3.6); CHOLESTEROL 180 MD/DL (0-199); CREATININE, SERUM 0.77 mg/dL (0.57-1.11); EST GLOMERULAR FILTRATION RATE > 60 ML/MIN (60-); GLUCOSE 223 mg/dL (74-118); HDL CHOLESTEROL 33 MG/DL (40-60); MAGNESIUM 1.3 MG/DL (1.3-2.1); SODIUM 134 mmol/L (136-145); TRIGLYCERIDES 937 MG/DL (0-149)
[2017-09-16] MEDS: INSULIN REGULAR, HUMAN 100 UNIT/1 ML 3ML VIAL SQ SCH ×4 (07:30→21:00)
[2017-09-16 07:47] LABS: FREE T4 (FREE THYROXINE) 0.97 ng/dL (0.9-1.8); THYROID STIMULATING HORMONE 0.375 uIU/mL (0.350-4.940)
[2017-09-16 08:00] VITALS: BP 127/72
[2017-09-16] MEDS: ETODOLAC 500 MG PO SCH ×2 (08:00→16:41)
[2017-09-16 08:05] VITALS: BP 127/72
[2017-09-16] MEDS: VANCOMYCIN 1GM/NS 250 ML 250 ML IV SCH ×2 (08:55→21:10)
[2017-09-16] MEDS: LEVETIRACETAM 500 MG TAB PO SCH ×2 (09:00→16:48)
[2017-09-16] MEDS: GABAPENTIN 300 MG CAP PO SCH ×3 (09:00→20:30)
[2017-09-16] MEDS: SUCRALFATE 1 GM/10 ML SUSP PO SCH ×3 (09:00→16:47)
[2017-09-16] MEDS: FERROUS SULFATE 325 MG TAB PO SCH ×2 (09:00→16:48)
[2017-09-16] MEDS: METOCLOPRAMIDE HCL 10 MG TAB PO SCH ×4 (09:00→20:30)
[2017-09-16] MEDS: CITALOPRAM HYDROBROMIDE 20 MG TAB PO SCH (09:00)
[2017-09-16] MEDS: NIACIN 500 MG PO SCH (09:00)
[2017-09-16] MEDS: BUPROPION HCL 150 MG TABCR PO SCH (09:00)
[2017-09-16] MEDS: DICLOFENAC EPOLAMINE 1.3% PATCH TP SCH ×2 (09:00→22:20)
[2017-09-16] MEDS: FUROSEMIDE 20 MG TAB PO SCH (09:00)
[2017-09-16] MEDS: SPIRONOLACTONE 25 MG TAB PO SCH (09:00)
[2017-09-16] MEDS: PREDNISONE 5 MG TAB PO SCH (09:00)
[2017-09-16] MEDS: FOLIC ACID 1 MG TAB PO SCH (09:00)
[2017-09-16] MEDS: LISINOPRIL 20 MG TAB PO SCH (09:00)
[2017-09-16] MEDS: POTASSIUM CHLORIDE 10 MEQ TABCR PO SCH (09:00)
[2017-09-16] MEDS: ATENOLOL 50 MG TAB PO SCH (09:00)
[2017-09-16] MEDS: FENOFIBRATE 160 MG PO SCH (09:00)
[2017-09-16] MEDS: HYDROCHLOROTHIAZIDE 25 MG TAB PO SCH (09:00)
[2017-09-16] MEDS: PREGABALIN 75 MG CAP PO SCH ×2 (09:00→16:48)
[2017-09-16] MEDS: PANTOPRAZOLE SOD 40 MG TABEC PO SCH ×2 (09:00→16:47)
[2017-09-16] MEDS ORDERED: SUMATRIPTAN SUCCINATE 25 MG TAB PO ONE (10:15)
[2017-09-16 12:00] VITALS: BP 116/68
--- NOTE | 2017-09-16 14:34 | Progress Note ---
DATE: September 16, 2017 SUBJECTIVE: Ms. George is doing better today. The legs seem to be better. There are no new complaints. She continues to have pain. REVIEW OF SYSTEMS: Otherwise, nothing new. LABORATORY DATA: Reviewed with her. Chart reviewed. White count 9.98 and hemoglobin 14.5. MEDICATION LIST: Also, reviewed. She remains on morphine, Reglan, [place], Keppra, Celexa, Lyrica, and vancomycin. PHYSICAL EXAMINATION GENERAL: She is currently alert, oriented, and does not seem to be in acute distress. VITALS: Stable, currently afebrile. HEENT: She does not appear icteric. NECK: Supple. No JVD. No lymphadenopathy. No thyromegaly. CHEST: Clear bilaterally. ABDOMEN: Morbidly obese. EXTREMITIES: The foot is less erythematous and less swollen. IMPRESSION AND PLAN 1. Patient's cellulitis of the leg and the foot seems better: Continue with vancomycin for a couple of days. Hopefully, we can discharge her by Sunday. 2. Neuropathy from her diabetes mellitus. 1. Morbidly obese patient. 2. We will follow. Job#: [id number] JOSE
[2017-09-16 16:00] VITALS: BP 116/53
[2017-09-16] MEDS: RIVAROXABAN 20 MG TABLET PO SCH (16:48)
[2017-09-16] MEDS: ARIPIPRAZOLE 5 MG TABLET PO SCH (20:30)
[2017-09-16] MEDS: PRAVASTATIN 20 MG TAB PO SCH (20:30)
[2017-09-17] MEDS: SODIUM CHLORIDE 0.9% 1000ML 1,000 ML IV SCH ×3 (02:50→20:29)
[2017-09-17] MEDS: MORPHINE SULFATE 2 MG/ML SYR IV PRN ×3 (02:54→16:56)
[2017-09-17 06:33] LABS: BASOPHILS # (AUTO) 0.1 (0.0-0.1); BASOPHILS % 0.9 % (0.0-1.0); EOSINOPHILS # (AUTO) 0.4 (0.0-0.4); EOSINOPHILS % 3.6 % (0.0-6.0); HEMATOCRIT 43.6 % (34.2-44.1); LYMPHOCYTES # (AUTO) 2.4 (1.0-3.2); MEAN CORPUSCULAR HEMOGLOBIN 32.3 pg (28-32); MEAN CORPUSCULAR HGB CONC 34.4 g/dL (31-35); MEAN CORPUSCULAR VOLUME 93.8 fL (81-99); MONOCYTES # (AUTO) 0.5 (0.2-0.8); MONOCYTES % 5.4 % (4.4-11.3); NEUTROPHILS # (AUTO) 6.3 (2.1-6.9); NEUTROPHILS % 64.4 % (38.7-80.0); PLATELET COUNT 221 x10e3/uL (140-360); RED BLOOD COUNT 4.65 x10e6/uL (3.6-5.1); RED CELL DISTRIBUTION WIDTH 12.6 % (11.7-14.4)
[2017-09-17 06:54] LABS: BLOOD UREA NITROGEN 13 mg/dL (7-26); BUN/CREATININE RATIO 17 (6-25); CALCIUM 9.9 mg/dL (8.4-10.2); CARBON DIOXIDE 28 mmol/L (22-29); CHLORIDE 98 mmol/L (98-107); CREATININE, SERUM 0.75 mg/dL (0.57-1.11); EST GLOMERULAR FILTRATION RATE > 60 ML/MIN (60-); GLUCOSE 209 mg/dL (74-118); MAGNESIUM 1.4 MG/DL (1.3-2.1); SODIUM 137 mmol/L (136-145)
[2017-09-17 07:58] VITALS: BP 101/54
[2017-09-17] MEDS: ETODOLAC 500 MG PO SCH ×2 (08:00→16:36)
[2017-09-17 08:08] VITALS: BP 101/54
[2017-09-17] MEDS: GABAPENTIN 300 MG CAP PO SCH ×3 (08:30→20:29)
[2017-09-17] MEDS: INSULIN REGULAR, HUMAN 100 UNIT/1 ML 3ML VIAL SQ SCH ×4 (08:30→21:00)
[2017-09-17] MEDS: HYDROCHLOROTHIAZIDE 25 MG TAB PO SCH (08:30)
[2017-09-17] MEDS: LEVETIRACETAM 500 MG TAB PO SCH ×2 (08:30→16:45)
[2017-09-17] MEDS: VANCOMYCIN 1GM/NS 250 ML 250 ML IV SCH ×2 (08:30→20:29)
[2017-09-17] MEDS: PREDNISONE 5 MG TAB PO SCH (08:30)
[2017-09-17] MEDS: FUROSEMIDE 20 MG TAB PO SCH (08:30)
[2017-09-17] MEDS: PREGABALIN 75 MG CAP PO SCH ×2 (08:30→16:45)
[2017-09-17] MEDS: FOLIC ACID 1 MG TAB PO SCH (08:30)
[2017-09-17] MEDS: POTASSIUM CHLORIDE 10 MEQ TABCR PO SCH (08:30)
[2017-09-17] MEDS: BUPROPION HCL 150 MG TABCR PO SCH (08:30)
[2017-09-17] MEDS: SUCRALFATE 1 GM/10 ML SUSP PO SCH ×3 (08:30→16:44)
[2017-09-17] MEDS: METOCLOPRAMIDE HCL 10 MG TAB PO SCH ×4 (08:30→20:29)
[2017-09-17] MEDS: FERROUS SULFATE 325 MG TAB PO SCH ×2 (08:30→16:45)
[2017-09-17] MEDS: SPIRONOLACTONE 25 MG TAB PO SCH (08:30)
[2017-09-17] MEDS: PANTOPRAZOLE SOD 40 MG TABEC PO SCH ×2 (08:30→16:45)
[2017-09-17] MEDS: FENOFIBRATE 160 MG PO SCH (08:53)
[2017-09-17] MEDS: NIACIN 500 MG PO SCH (08:54)
[2017-09-17] MEDS: LISINOPRIL 20 MG TAB PO SCH (09:00)
[2017-09-17] MEDS: ATENOLOL 50 MG TAB PO SCH (09:00)
[2017-09-17] MEDS: CITALOPRAM HYDROBROMIDE 20 MG TAB PO SCH (09:27)
[2017-09-17] MEDS: DICLOFENAC EPOLAMINE 1.3% PATCH TP SCH ×2 (09:58→22:00)
[2017-09-17 12:00] VITALS: BP 120/53
[2017-09-17] MEDS: HYDROCODONE/APAP 10MG-325MG TAB PO PRN (14:15)
[2017-09-17 16:00] VITALS: BP 108/53
[2017-09-17] MEDS: RIVAROXABAN 20 MG TABLET PO SCH (16:45)
[2017-09-17 20:00] VITALS: BP 106/61
[2017-09-17] MEDS: PRAVASTATIN 20 MG TAB PO SCH (20:29)
[2017-09-17] MEDS: ARIPIPRAZOLE 5 MG TABLET PO SCH (20:29)
[2017-09-17 20:34] VITALS: BP 106/61
[2017-09-18] MEDS: MORPHINE SULFATE 2 MG/ML SYR IV PRN ×2 (01:25→08:02)
[2017-09-18] MEDS: SODIUM CHLORIDE 0.9% 1000ML 1,000 ML IV SCH ×2 (01:28→06:02)
[2017-09-18 05:37] VITALS: BP 109/77
[2017-09-18 06:23] LABS: BASOPHILS # (AUTO) 0.1 (0.0-0.1); BASOPHILS % 0.9 % (0.0-1.0); EOSINOPHILS # (AUTO) 0.3 (0.0-0.4); EOSINOPHILS % 3.2 % (0.0-6.0); HEMATOCRIT 41.3 % (34.2-44.1); HEMOGLOBIN 14.2 g/dL (12.0-16.0); LYMPHOCYTES # (AUTO) 2.2 (1.0-3.2); LYMPHOCYTES % 24.6 % (18.0-39.1); MEAN CORPUSCULAR HEMOGLOBIN 32.1 pg (28-32); MEAN CORPUSCULAR HGB CONC 34.4 g/dL (31-35); MEAN CORPUSCULAR VOLUME 93.2 fL (81-99); MONOCYTES # (AUTO) 0.6 (0.2-0.8); MONOCYTES % 6.1 % (4.4-11.3); NEUTROPHILS # (AUTO) 5.8 (2.1-6.9); NEUTROPHILS % 64.4 % (38.7-80.0); PLATELET COUNT 195 x10e3/uL (140-360); RED BLOOD COUNT 4.43 x10e6/uL (3.6-5.1); RED CELL DISTRIBUTION WIDTH 12.7 % (11.7-14.4)
[2017-09-18 06:49] LABS: ANION GAP 16.8 mmol/L (8-16); BLOOD UREA NITROGEN 13 mg/dL (7-26); BUN/CREATININE RATIO 18 (6-25); CALCIUM 9.2 mg/dL (8.4-10.2); CARBON DIOXIDE 26 mmol/L (22-29); CHLORIDE 98 mmol/L (98-107); CREATININE, SERUM 0.71 mg/dL (0.57-1.11); EST GLOMERULAR FILTRATION RATE > 60 ML/MIN (60-); GLUCOSE 212 mg/dL (74-118); MAGNESIUM 1.3 MG/DL (1.3-2.1); POTASSIUM 3.8 mmol/L (3.5-5.1); SODIUM 137 mmol/L (136-145)
[2017-09-18] MEDS: INSULIN REGULAR, HUMAN 100 UNIT/1 ML 3ML VIAL SQ SCH ×2 (07:30→11:45)
[2017-09-18] MEDS: SUCRALFATE 1 GM/10 ML SUSP PO SCH ×2 (08:00→11:43)
[2017-09-18] MEDS: ETODOLAC 500 MG PO SCH (08:00)
[2017-09-18] MEDS: SPIRONOLACTONE 25 MG TAB PO SCH (08:01)
[2017-09-18] MEDS: METOCLOPRAMIDE HCL 10 MG TAB PO SCH ×2 (08:02→11:43)
[2017-09-18] MEDS: PANTOPRAZOLE SOD 40 MG TABEC PO SCH (08:02)
[2017-09-18 08:04] VITALS: BP 117/78
[2017-09-18] MEDS: FENOFIBRATE 160 MG PO SCH (09:00)
[2017-09-18] MEDS: NIACIN 500 MG PO SCH (09:00)
[2017-09-18] MEDS: PREGABALIN 75 MG CAP PO SCH (09:15)
[2017-09-18] MEDS: FERROUS SULFATE 325 MG TAB PO SCH (09:48)
[2017-09-18] MEDS: VANCOMYCIN 1GM/NS 250 ML 250 ML IV SCH (09:48)
[2017-09-18] MEDS: CITALOPRAM HYDROBROMIDE 20 MG TAB PO SCH (09:48)
[2017-09-18] MEDS: POTASSIUM CHLORIDE 10 MEQ TABCR PO SCH (09:49)
[2017-09-18] MEDS: LEVETIRACETAM 500 MG TAB PO SCH (09:49)
[2017-09-18] MEDS: HYDROCHLOROTHIAZIDE 25 MG TAB PO SCH (09:49)
[2017-09-18] MEDS: FUROSEMIDE 20 MG TAB PO SCH (09:49)
[2017-09-18] MEDS: FOLIC ACID 1 MG TAB PO SCH (09:49)
[2017-09-18] MEDS: GABAPENTIN 300 MG CAP PO SCH (09:50)
[2017-09-18] MEDS: LISINOPRIL 20 MG TAB PO SCH (09:50)
[2017-09-18] MEDS: ATENOLOL 50 MG TAB PO SCH (09:50)
[2017-09-18] MEDS: PREDNISONE 5 MG TAB PO SCH (09:50)
[2017-09-18] MEDS: BUPROPION HCL 150 MG TABCR PO SCH (09:51)
[2017-09-18] MEDS: DICLOFENAC EPOLAMINE 1.3% PATCH TP SCH (10:00)
[2017-09-18] MEDS ORDERED: TYLENOL WITH C1 EACH PO (10:23)
[2017-09-18] MEDS ORDERED: KEPPRA750 MG PO (10:23)
[2017-09-18] MEDS ORDERED: VANCOMYCIN1.5 GM/250 IV (10:23)
[2017-09-18] MEDS: HYDROCODONE/APAP 10MG-325MG TAB PO PRN (10:40)
[2017-09-18 11:29] VITALS: BP 117/78
[2017-09-18 12:00] VITALS: BP 96/67
--- NOTE | 2017-09-18 13:00 | Diagnostic Imaging Report ---
PROCEDURE:CHEST XRAY LINE PLACEMENT TECHNIQUE:Portable AP chest INDICATION:Line placement COMPARISON:None. FINDINGS: See conclusion. CONCLUSION: 1. Left PICC terminating at the atrial caval junction. 2. Clear lungs. No pleural effusions. 3. Normal heart size and mediastinal contour. 4. Grossly intact skeleton. Dictated by: Roddy Raymundo M.D. on 09/18/2017 at 13:03 Electronically approved by: Roddy Raymundo M.D. on 09/18/2017 at 13:03
--- NOTE | 2017-09-18 20:35 | Discharge Summary ---
ADMISSION DIAGNOSES 1. Left lower extremity cellulitis. 2. Hypertension. 3. History of deep vein thrombosis/pulmonary embolism. 4. Chronic back pain. 5. Hyperlipidemia. 6. Depression. 7. History of seizures. 8. Diabetes. 9. Gastroesophageal reflux disease. 10. Morbid obesity. DISCHARGE DIAGNOSES 1. Left lower extremity cellulitis. 2. Hypertension. 3. History of deep vein thrombosis/pulmonary embolism. 4. Chronic back pain. 5. Hyperlipidemia. 6. Depression. 7. History of seizures. 8. Diabetes. 9. Gastroesophageal reflux disease. 10. Morbid obesity. HISTORY: Patient has a history of hypertension, right lower extremity DVT in 2016, PE in 2017, seizures, prediabetes, scoliosis, obesity, hyperlipidemia, GERD, depression and chronic back pain. HOSPITAL COURSE: A 47-year-old female complains of left lower extremity pain and swelling that began Sunday. She denies any trauma. She does complain of a fever of 103.6 the following . She says she had to wait for her child to get out of school before coming to the ER. Pain worsens with movement and touch and is improved with pain medicines. She admits frequently with cellulitis and is requesting ID consult. Due to PENICILLIN ALLERGY, patient was put on vancomycin. ID agreed. Venous Doppler of the left lower extremity was negative. Patient's cellulitis improved quickly, but the pain did not. Patient remained on home medications for hypertension, DVT/PE, hyperlipidemia, seizures, diabetes, as well as GERD. She was instructed to start a [id number]-[id number]-[id number] diet due to morbid obesity. Blood cultures were negative. At time of discharge, WBC 8.96, hemoglobin 14.2, hematocrit of 41.3. Sodium 137, potassium 3.8, creatinine of 0.71, GFR of over 60. Patient's rheumatoid factor and ROMAN screen are pending. Per ID, she will follow up with him tomorrow in office for IV antibiotics. She had a PICC line placed prior to discharge and will receive 2 weeks of IV antibiotic per ID. She will also follow up with PCP in 2 weeks. Patient agrees with plan. Dictated by: Anastacia Moffett NP JOMAR EARLY MD Job#: [id number] EV
== END 2017-09-18 14:51 | disposition home or self-care (01) | DRG 603 ==
LOC: ER 15:53 → ERHOLD 18:53 → EDBEDREQTM 18:56 → MED/SURG2 21:22
PROVIDERS: ADMIT Internal Medicine; ATTEND Internal Medicine
PROC: 02HV33Z Insertion of Infusion Device into Superior Vena Cava, Percutaneous Approach (ICD-10-PCS; principal; 2017-09-18)
DX: L03.116 Cellulitis of left lower limb (principal); Z68.42 Body mass index [BMI] 45.0-49.9, adult; E66.01 Morbid (severe) obesity due to excess calories; G62.9 Polyneuropathy, unspecified; I89.0 Lymphedema, not elsewhere classified; I10 Essential (primary) hypertension; G40.909 Epilepsy, unspecified, not intractable, without status epilepticus; F32.9 Major depressive disorder, single episode, unspecified; M54.5 Low back pain; G89.29 Other chronic pain; K21.9 Gastro-esophageal reflux disease without esophagitis; E78.5 Hyperlipidemia, unspecified; Z86.718 Personal history of other venous thrombosis and embolism; Z79.01 Long term (current) use of anticoagulants; Z86.711 Personal history of pulmonary embolism; M41.9 Scoliosis, unspecified; E11.40 Type 2 diabetes mellitus with diabetic neuropathy, unspecified; Z79.4 Long term (current) use of insulin
CPT/HCPCS: 36415; 36569; 71045; 80048; 80053; 80061; 80202; 82948; 83036; 83735; 83880; 84439; 84443; 84550; 85025; 86039; 86200; 86431; 87040; 93971; 99284; J1885; J2270; J2550; J3370; J7030; J7512

== ENCOUNTER → 2017-09-19 | Outpatient (CLI) | payer BC ==
[~2017-09-19] MED LIST changes: +KEPPRA750 MG PO; +TYLENOL WITH C1 EACH PO; +VANCOMYCIN1.5 GM/250 IV
--- NOTE | 2017-09-19 17:07 | Diagnostic Imaging Report ---
PROCEDURE: A single AP view of the chest. COMPARISON: Patients [facility], DX, CHEST XRAY LINE PLACEMENT, 09/18/2017, 12:46. INDICATIONS: NEW PICC LINE PLACEMENT. FINDINGS: Lines/tubes: Left upper extremity PICC with distal tip not well visualized however, it appears located in the cavoatrial junction. Lungs: Mild left basilar atelectasis versus scarring, unchanged. There is no evidence of pneumonia or pulmonary edema. Pleura: There is no pleural effusion or pneumothorax. Heart and mediastinum: The heart and the mediastinum are unremarkable. Bones: No acute bony abnormality. IMPRESSION: 1. Left upper extremity PICC with distal tip at the cavoatrial junction. Radhika Sullivan M.D. Dictated by: Radhika Sullivan M.D. on 09/19/2017 at 17:09 Electronically approved by: Radhika Sullivan M.D. on 09/19/2017 at 17:09
== END ==
LOC: DX 14:21
PROVIDERS: ATTEND Internal Medicine Infectious Disease
DX: L03.116 Cellulitis of left lower limb (principal)
CPT/HCPCS: 36569; 71045

== ENCOUNTER 2017-10-02 14:52 | Inpatient (IN) | payer BC ==
[~2017-10-02] VITALS: Ht 175.3 cm; Wt 135.7 kg
--- OUTSIDE RECORDS SUMMARY | 2017-10-02 14:54 | XMS REPORT | Clinical Summary ---
Author Author MALORIE Evol[facility] SoftwareBon[facility] HospitalZacharon PharmaceuticalsOr[facility] Address Unknown Phone Unavailable Care Team Providers Care Clinical Research Assistant Name Role Phone PCP Unavailable Allergies Active [...] MD Event 04/09/2017 Orders Only Juliet Catalan, HORSE SHOER, Obstructive sleep apnea [employer] syndrome (Primary Dx);Morbid obesity (HCC) 04/06/2017 Hospital [...] unspecified type;Hyperlipidemia, unspecified hyperlipidemia type;Venous thromboembolism;Snoring after 10/01/2016 Social History Tobacco Use Types Packs/Day Years Used Date Current Every Day Smoker 2 28 Smokeless Tobacco: Never Used Tobacco Cessation: Ready to Quit: Yes; Counseling Given: Yes Comments: handout to be given dos Alcohol Use Drinks/Week oz/Week Comments No Sex Assigned at Date Recorded Not on file Last Filed Vital Signs Vital Sign Reading Time Taken Blood Pressure 132/83 04/11/2017 5:50 PM CERTIFIED SURGICAL TECH/FIRST ASSISTANT Pulse 93 04/11/2017 5:50 PM CERTIFIED SURGICAL TECH/FIRST ASSISTANT Temperature 36.6 C (97.9 F) 04/11/2017 3:25 PM CERTIFIED SURGICAL TECH/FIRST ASSISTANT Respiratory Rate 20 04/11/2017 3:25 PM CERTIFIED SURGICAL TECH/FIRST ASSISTANT Oxygen Saturation 94% 04/11/2017 5:50 PM CERTIFIED SURGICAL TECH/FIRST ASSISTANT Inhaled Oxygen - - Concentration Weight 149.2 kg (328 lb 14.8 oz) 04/10/2017 11:37 AM CERTIFIED SURGICAL TECH/FIRST ASSISTANT Height 175.3 cm (5' 9") 04/10/2017 11:37 AM CERTIFIED SURGICAL TECH/FIRST ASSISTANT Body Mass Index 48.57 04/10/2017 11:37 AM CERTIFIED SURGICAL TECH/FIRST ASSISTANT Plan of Treatment Health Maintenance Due Date Last Done Comments INFLUENZA VACCINE 01/21/2018 Procedures Procedure Name Priority Date/Time Associated Diagnosis Comments CYSTOSCOPY 04/10/2017 Uterine bleeding 1:00 PM CERTIFIED SURGICAL TECH/FIRST ASSISTANT LAPAROSCOPY,CYSTECTOMY/SA 04/10/2017 Uterine bleeding LPINGECTOMY/OOPHORECTOMY 1:00 PM CERTIFIED SURGICAL TECH/FIRST ASSISTANT HYSTERECTOMY,VAGINAL W/ 04/10/2017 Uterine bleeding SALPINGO-OOPHORECTOMY 1:00 PM CERTIFIED SURGICAL TECH/FIRST ASSISTANT after 10/01/2016 Results * INTRAOPERATIVE PATH REPORT - SCAN (05/02/2017 2:11 PM) * RHYTHM STRIP - SCAN (04/17/2017 2:21 PM) * TRANSFUSION SERVICE REPORT - SCAN (04/13/2017 5:44 PM) Only the most recent of 5 results within the time period is included. * POC-Glucose meter (04/11/2017 6:06 PM) Component Value Ref Range POC-Glucose Meter 187 (H)Comment: TESTED AT [address] 70 - 110 mg /dL [facility] [address] Specimen Performing Laboratory Blood [address] [address] * Hemoglobin A1c (04/11/2017 2:25 PM) Component Value Ref Range Hemoglobin A1C 7.0 (H) 4.3 - 6.1 % Specimen Performing Laboratory Blood [address] [address] * CBC with platelet count + automated [...] 1 % Granulocytes-Relative Specimen Performing Laboratory Blood [address] [address] * CBC with platelet count + automated diff (04/11/2017 3:28 AM) Only the most recent of 2 results within the time period is included. Specimen Performing Laboratory Blood Narrative The following orders were created for panel order CBC with platelet count + automated diff. Procedure Abnormality Status --------- - ------ CBC with platelet count ...[[id number]]AbnormalFinal result Please view results for these tests [...] FOR DIALYSIS PATIENTS. Specimen Performing Laboratory Blood [address] [address] * Tissue Exam (04/10/2017 4:55 PM) Component Value Ref Range Case Report Surgical Pathology Report Case: [id number] Authorizing Provider: MikePavankristina, Collected: 04/10/2017 1655 Ordering [...] PATHOLOGIC CHANGES Signing Pathologist Direct Phone Line: [phone] CPT Code(s) 34878, 64373 CLINICAL HISTORY Abnormal uterine bleed SPECIMEN SOURCE [...] identified within the cervix or uterine body. Manager Digital [employer] sections are submitted as follows: cassette A1-A3, [...] P.M. MICROSCOPIC DESCRIPTION A-C: Performed. Professional component [facility], Department of was performed at Pathology, [address] [place] [address], [place] [address], Specimen Performing Laboratory Tissue - Uterus w/Cervix; [facility] Tissue - Fallopian Tube, [address] [place] [address] Right & Ovary; [place] [address] Fallopian Tube, Left & Ovary * POCT , urine (04/10/2017 1:18 PM) Component Value Ref Range Test Urine, POC Negative Control line present?, Yes POC Background clear?, POC Yes UPT Cassette Lot #, POC [id number] UPT Cassette Expiration 09/20/2018 Date, POC * Prepare RBC (04/09/2017 12:07 PM) Only the most recent of 3 results within the time period is included. Component Value Ref Range Unit ABO B Pos UNIT NUMBER [id number] Status WORK IN PROGRESS Blood Bank Product RED BLOOD CELLS PRODUCT CODE [id number] Unit ABO B Pos UNIT NUMBER [id number] Status WORK IN PROGRESS Blood Bank Product RED BLOOD CELLS PRODUCT CODE [id number] Specimen Performing Laboratory [place] * NM myocardial perfusion SPECT, pharm(Lexiscan) (04/09/2017 11:31 AM) Specimen Performing Laboratory GE RIS Narrative FINAL REPORT PROCEDURE:2-Day Stress/Rest MYOCARDIAL PERFUSION SPECT with regadenoson\\XA9\\ CPT CODE:16368 INDICATION:Z01.818, I 10, E 78.5, I 82.90, [...] Extracardiac tracer distribution is normal.6. No previous [facility] study for comparison. NONINVASIVE RISK STRATIFICATION: The above findings are considered low risk (<1% annual mortality rate) based on the following criterion: - Normal or small myocardial perfusion defect at rest or with stress (JAC. 2012;59(9):857-81.) Signed: Hasmukh Lorenzo MD Report Verified Date/Time:04/09/2017 14:36:37 Reading Location: [address] Reading Room Procedure Note Interface, External Ris In - 04/09/2017 2:38 PM CERTIFIED SURGICAL TECH/FIRST ASSISTANT FINAL REPORT PROCEDURE: 2-Day Stress/Rest MYOCARDIAL PERFUSION SPECT with regadenoson\\XA9\\ CPT CODE: 80864 INDICATION: Z01.818, I 10, E 78.5, I [...] tracer distribution is normal. 6. No previous [facility] study for comparison. NONINVASIVE RISK STRATIFICATION: The above findings are considered low risk (<1% annual mortality rate) based on the following criterion: - Normal or small myocardial perfusion defect at rest or with stress (JACC. 2012;59(9):857-81.) Signed: Hasmukh Lorenzo MD Report Verified Date/Time: 04/09/2017 14:36:37 Reading Location: [address] Reading Room * Treadmill tolerance(Non-Nuclear Treadmill) (04/06/2017 10:27 AM) Specimen Performing Laboratory Synfora Narrative Protocol Name Regadenoson Time In Exercise [...] External Ris In - 04/11/2017 1:01 PM CERTIFIED SURGICAL TECH/FIRST ASSISTANT Protocol Name Neptali Time In Exercise Phase [...] 10:48:47 AM Confirmed by MD FERGUSON JORGE ([id number]) on 04/11/2017 1:01:06 PM * Antibody identification [...] POSITIVEComment: Echo 2 Specimen [place] [address] * Screen, urine (03/22/2017 5:11 PM) Component Value Ref Range Preg Test, Ur Negative Specimen [place] [address] * Direct AHG (NOÉ)/Direct Liborio (03/22/2017 5:11 PM) Component Value Ref Range Direct AHG-IGG POSITIVEComment: Ig+ Direct AHG-C3B, C3D POSITIVEComment: C3: 1+ Specimen [place] [address] * Comprehensive metabolic panel (03/22/2017 5:11 PM) [...] FOR DIALYSIS PATIENTS. Specimen Performing Laboratory Blood [address] [address] * PT/aPTT (03/22/2017 5:10 PM) Component Value Ref Range Protime 14.4 11.7 - 14.7 seconds INR 1.1 <=5.9 PTT 27.6 22.5 - 36.0 seconds Specimen Performing Laboratory Blood [address] [address] Narrative RECOMMENDED COUMADIN/WARFARIN INR THERAPY RANGES STANDARD DOSE: 2.0 - 3.0 Includes: PROPHYLAXIS for venous thrombosis, systemic embolization; TREATMENT for venous thrombosis and/or pulmonary embolus. HIGH RISK: Target INR is 2.5-3.5 for patients with mechanical heart valves. after 10/01/2016
--- OUTSIDE RECORDS SUMMARY | 2017-10-02 14:54 | XMS REPORT | Continuity of Care Document ---
Author Author [facility] Organization [facility] Address [address] [place] [address] Phone Unavailable Care Team Providers Care Flat Sorter Processor Name Role Phone JOMAR EARLY MD PCP Insurance Providers Guarantor Tatiana Gregory Address [address] [place] [address] Email PTDECLINED Payer [facility] Policy Number [id number] Subscriber's Name Ade Millan Iii Relationship 01 Group Number [id number] Group Name [employer]AN Effective Date 16 Advance Directives Directive Response Recorded Date/Time Does the patient have an advance directive? No 09/15/17 12:35am If yes, is advance directive on file with [facility]? No 09/15/17 12:35am If not on file with [facility] will patient provide a copy? No 09/15/17 12:35am Do you have a Directive to Physician? No 09/14/17 5:30pm Do you have a Medical Power of Carbide Operator? No 09/14/17 5:30pm Do you have an out of hospital Do Not Resuscitate Order? No 09/14/17 5:30pm Do you have any special needs we should be aware of? No 09/14/17 5:30pm Do you have a support person here with you today? Yes 09/14/17 5:30pm Did patient receive Notice of Privacy Practices? Yes 09/14/17 5:30pm Did patient receive patient rights and responsibilities? Yes 09/14/17 5:30pm Problems No problem information available. Medications Current Home Medications Medication Dose Units Route Directions Days Qty Instructions Start Date Acetaminophen With Codeine (Tylenol With Codeine #3 Tablet) 1 Each Tablet 300 Mg Oral Every 8 Hours as needed for Pain 30 Tab 09/18/17 Aripiprazole (Abilify) 5 Mg Tablet 15 Mg [...] 25 Mg Oral Daily 30 Tab Levetiracetam (Keppra) 750 Mg Tablet 750 Mg Oral Twice A Day 30 Lisinopril 10 Mg Tablet 20 Mg Oral [...] 1 Gm Oral Three Times A Day Vancomycin/0.9% Sod Chloride (Vancomycin-0.9% Nacl 1.5 G/250) 1.5 Gm/250 Ml Plast..bag 1.5 Gm Intraven Every 12 Hours 14 Days 09/18/17 Past Home Medications Medication Directions Ordered Status Levetiracetam 500 Mg Tablet, 3 Tab Oral Twice A Day Discontinued Sulfamethoxazole/Trimethoprim (Bactrim Ds Tablet) 1 Each Tablet, 1 Tab Oral Twice A Day 06/27/17 Discontinued Social History Social History Problem Response Recorded Date/Time Onset Date Status Hx Psychiatric Problems No 09/15/2017 12:35am Not Applicable Not Applicable Hx Eating Disorder No 09/15/2017 12:35am Not Applicable Not Applicable Hx Substance Use Disorder No 09/15/2017 12:35am Not Applicable Not Applicable Hx Depression No 09/15/2017 12:35am Not Applicable Not Applicable Hx Alcohol Use No 09/15/2017 12:35am Not Applicable Not Applicable Hx Substance Use Treatment No 09/15/2017 12:35am Not Applicable Not Applicable Hx Physical Abuse No 09/15/2017 12:35am Not Applicable Not Applicable Smoking Status Start Date Stop Date Current every day smoker Hospital Discharge Instructions No hospital discharge instruction information available. Plan of Care Discharge Date 09/18/17 2:51pm Disposition HOME, SELF-CARE Instructions/Education Provided Cellulitis Diabetes and Diet PICC Prescriptions See Medication Section Referrals PETER CALZADA (Infectious Disease) Order Date: 1 Day Entered Date: 09/18/2017 10:23am Address: [address] [place] [id number] Additional Instructions/Education DIABETIC DIET ACTIVITY TOLERATED, ELEVATE LEFT LEG TO DECREASE SWELLING FOLLOW UP WITH DR CUEVAS TOMORROW MORNING, CALL TODAY TO CONFIRM YOUR APPOINTMENT FOR ANTIBIOTIC THERAPY FOLLOW UP WITH YOUR PRIMARY CARE DOCTOR INSTRUCTED Functional Status Query Response Date Recorded Assistive Devices None September 15, 2017 12:10am Ambulation Ability Minimum Assistance September 15, 2017 12:10am Toileting Ability Independent September 16, 2017 6:12pm Allergies, Adverse Reactions, Alerts Allergen Type Severity Reaction Status Last Updated Penicillin Allergy Severe Active 01/10/17 Latex Allergy Severe Active 01/10/17 nut - unspecified Allergy Severe THROAT SWELLING Active 09/14/17 Immunizations No immunization information available. Vital Signs Acute Vital Signs Vital Response Date/Time Temperature (Fahrenheit) 97.7 degrees F (97.6 - 99.5) 09/18/2017 12:00pm Pulse Pulse Rate (adult) 71 bpm (60 - 90) 09/18/2017 12:00pm Respiratory Rate 16 bpm (12 - 24) 09/18/2017 12:00pm Blood Pressure 96/67 mm Hg 09/18/2017 12:00pm Height 5 ft 9 in 09/14/2017 4:15pm Weight 313.56 lb 09/14/2017 9:40pm Body Mass Index 46.3 kg/m^2 09/15/2017 12:35am Results Laboratory Results Test Name Result Units Flags Reference Collection Date/Time Result Date/ Time Comments Direct Bilirubin 0.1 mg/dL 0.0-5.0 01/09/2017 5:08pm 01/09/2017 9:16pm Prothrombin Time 14.7 seconds H 11.9-14.5 06/24/2017 [...] CLEAR 06/24/2017 10:20pm 06/24/2017 10:33pm Urine Specific [place] 1.015 1.010-1.025 06/24/2017 10:20pm 2017 10:33pm Urine [...] /LPF NONE 06/24/2017 10:20pm 06/24/2017 10: 49pm Influenza Virus Types A,B Antigen NEGATIVE NEGATIVE 06/24/2017 10: 30pm 06/24/2017 10:56pm Lactic Acid Level 17.3 MG/DL 4.5-19.8 06/24/2017 8:35pm 06/24/2017 9: 34pm Creatine Kinase 84 IU/L 29-168 06/24/2017 8:35pm 06/24/2017 9:34pm Creatine Kinase MB 1.20 ng/mL 0-5.0 06/24/2017 8:35pm 06/24/2017 10: 02pm Troponin I 0.008 ng/mL 0-0.300 06/24/2017 8:35pm 06/24/2017 10:02pm White Blood Count 8.96 x10e3/uL 4.8-10.8 09/18/2017 6:09/18/2017 6 :37am Red Blood Count 4.43 x10e6/uL 3.6-5.1 09/18/2017 6:09/18/2017 6: 37am Hemoglobin 14.2 g/dL 12.0-16.0 09/18/2017 6:09/18/2017 6:37am Hematocrit 41.3 % 34.2-44.1 09/18/2017 6:09/18/2017 6:37am Mean Corpuscular Volume 93.2 fL 81-99 09/18/2017 6:09/18/2017 6: 37am Mean Corpuscular Hemoglobin 32.1 pg H 28-32 09/18/2017 6:2017 6:37am Mean Corpuscular Hemoglobin Concent 34.4 g/dL 31-35 09/18/2017 6:09/18/2017 6:37am Red Cell Distribution Width 12.7 % 11.7-14.4 09/18/2017 6:2017 6:37am Platelet Count 195 x10e3/uL 140-360 09/18/2017 6:09/18/2017 6: 37am Neutrophils (%) (Auto) 64.4 % 38.7-80.0 09/18/2017 6:09/18/2017 6: 37am Lymphocytes (%) (Auto) 24.6 % 18.0-39.1 09/18/2017 6:09/18/2017 6: 37am Monocytes (%) (Auto) 6.1 % 4.4-11.3 09/18/2017 6:09/18/2017 6: 37am Eosinophils (%) (Auto) 3.2 % 0.0-6.0 09/18/2017 6:09/18/2017 6: 37am Basophils (%) (Auto) 0.9 % 0.0-1.0 09/18/2017 6:09/18/2017 6:37am IM GRANULOCYTES % 0.8 % 0.0-1.0 09/18/2017 6:09/18/2017 6:37am Neutrophils # (Auto) 5.8 2.1-6.9 09/18/2017 6:09/18/2017 6:37am Lymphocytes # (Auto) 2.2 1.0-3.2 09/18/2017 6:09/18/2017 6:37am Monocytes # (Auto) 0.6 0.2-0.8 09/18/2017 6:09/18/2017 6:37am Eosinophils # (Auto) 0.3 0.0-0.4 09/18/2017 6:09/18/2017 6:37am Basophils # (Auto) 0.1 0.0-0.1 09/18/2017 6:09/18/2017 6:37am Absolute Immature Granulocyte (auto 0.07 x10e3/uL 0-0.1 09/18/2017 6: 09/18/2017 6:37am Sodium Level 137 mmol/L 136-145 09/18/2017 6:09/18/2017 6:51am Potassium Level 3.8 mmol/L 3.5-5.1 09/18/2017 6:09/18/2017 6:51am Chloride Level 98 mmol/L 98-107 09/18/2017 6:09/18/2017 6:51am Carbon Dioxide Level 26 mmol/L -09/18/2017 6:09/18/2017 6: 51am Anion Gap 16.8 mmol/L H 8-16 09/18/2017 6:09/18/2017 6:51am Blood Urea Nitrogen 13 mg/dL 7-09/18/2017 6:09/18/2017 6:51am Creatinine 0.71 mg/dL 0.57-1.11 09/18/2017 6:09/18/2017 6:51am BUN/Creatinine Ratio 18 6-09/18/2017 6:09/18/2017 6:51am Estimat Glomerular Filtration Rate > 60 ML/MIN 60- 09/18/2017 6: 6:51am Ranges were taken from the National Kidney Disease Education Program and the National Kidney Foundation literature. Reference ranges: 60 or greater: Normal 16-59 (for 3 consecutive months): Chronic kidney disease 15 or less: Kidney failure Glucose Level 212 mg/dL H 74-118 09/18/2017 6:01am 09/18/2017 6:51am Calcium Level 9.2 mg/dL 8.4-10.2 09/18/2017 6:01am 09/18/2017 6:51am Bedside Glucose 216 mg/dL H 70-120 09/18/2017 7:22am 09/18/2017 8:13am Meter ID: [id number] Hemoglobin A1c Percent 7.5 % H 4.0-7.0 09/16/2017 6:10am 09/16/2017 7: 25am Uric Acid 3.8 mg/dL 2.6-8.0 09/15/2017 3:43pm 09/15/2017 4:19pm Magnesium Level 1.3 MG/DL 1.3-2.1 09/18/2017 6:01am 09/18/2017 6:51am Total Bilirubin 0.5 mg/dL 0.2-1.2 09/14/2017 5:10pm 09/14/2017 5:52pm Aspartate Amino Transf (AST/SGOT) 15 IU/L 5-34 09/14/2017 5:10pm 2017 5:52pm Alanine Aminotransferase (ALT/SGPT) 33 IU/L 0-55 09/14/2017 5:10pm 5:52pm Total Protein 7.7 g/dL 6.5-8.1 09/14/2017 5:10pm 09/14/2017 5:52pm Albumin 3.9 g/dL 3.5-5.0 09/14/2017 5:10pm 09/14/2017 5:52pm Globulin 3.8 g/dL H 2.3-3.5 09/14/2017 5:10pm 09/14/2017 5:52pm Albumin/Globulin Ratio 1.0 0.8-2.0 09/14/2017 5:10pm 09/14/2017 5: 52pm Alkaline Phosphatase 73 IU/L 40-150 09/14/2017 5:10pm 09/14/2017 5: 52pm Triglycerides Level 937 MG/DL H 0-149 09/16/2017 6:10am 09/16/2017 7: 27am Cholesterol Level 180 MD/DL 0-199 09/16/2017 6:10am 09/16/2017 7:27am Less than 200 mg/dL Low Risk 201 - 239 mg/dL Borderline Risk 240 mg/dl and greater High Risk HDL Cholesterol 33 MG/DL L 40-60 09/16/2017 6:10am 09/16/2017 7:27am Cholesterol/HDL Ratio 5.5 H 3.0-3.6 09/16/2017 6:10am 09/16/2017 7: 27am B-Type Natriuretic Peptide < 10.0 pg/mL 0-100 09/16/2017 6:10am 2017 7:52am Free Thyroxine 0.97 ng/dL 0.9-1.8 09/16/2017 6:10am 09/16/2017 7:52am Thyroid Stimulating Hormone (TSH) 0.375 uIU/mL 0.350-4.940 09/16/2017 6: 10am 09/16/2017 7:52am Vancomycin Level Trough 6.6 ug/mL 5.0-10.0 09/16/2017 8:30pm 2017 9:04pm Microbiology Results Procedure Source Organism/Result Collection Date/Time Result Date/Time Result Status Urine Culture Urine,Clean Catch ENTEROBACTER AEROGENES 06/24/2017 10:20pm 06/27/2017 8:09am Final Blood Culture Blood NO GROWTH AFTER 72 HOURS 5:10pm 09/17/2017 5:39pm Preliminary Procedures Procedure Status Date Provider(s) INSERTION OF INFUSION DEV INTO SUP VENA CAVA, PERC APPROACH Completed JOMAR EARLY MD Computed tomography of abdomen and pelvis with contrast Active 01/09/17 JOMAR EARLY MD Computed tomography of brain without radiopaque contrast Active 06/24/17 SILVESTRE WATTERS MD X-ray of chest, two views Active 06/24/17 SILVESTRE WATTERS MD Computed tomography of brain with contrast Active 06/24/17 SILVESTRE WATTERS MD Encounters Encounter Location Arrival/Admit Date Discharge/Depart Date Attending Provider Discharged Inpatient [facility] 09/14/17 6:53pm 09/18/17 2:51pm JOMAR EARLY MD Departed Emergency Room [facility] 06/24/17 7:51pm 12:30am SILVESTRE WATTERS MD Discharged Inpatient [facility] 01/09/17 8:07pm 01/12/17 7:15pm JOMAR EARLY MD
[2017-10-02] MEDS ORDERED: SODIUM CHLORIDE 0.9% 1000ML 1,000 ML IV STA (16:57)
[2017-10-02 17:07] LABS: BASOPHILS # (AUTO) 0.1 (0.0-0.1); BASOPHILS % 0.9 % (0.0-1.0); EOSINOPHILS # (AUTO) 0.3 (0.0-0.4); EOSINOPHILS % 3.2 % (0.0-6.0); HEMATOCRIT 42.2 % (34.2-44.1); LYMPHOCYTES # (AUTO) 1.1 (1.0-3.2); LYMPHOCYTES % 11.5 % (18.0-39.1); MEAN CORPUSCULAR HEMOGLOBIN 32.3 pg (28-32); MEAN CORPUSCULAR HGB CONC 35.5 g/dL (31-35); MEAN CORPUSCULAR VOLUME 90.8 fL (81-99); MONOCYTES # (AUTO) 0.5 (0.2-0.8); MONOCYTES % 4.5 % (4.4-11.3); NEUTROPHILS # (AUTO) 7.9 (2.1-6.9); NEUTROPHILS % 79.5 % (38.7-80.0); PLATELET COUNT 239 x10e3/uL (140-360); RED BLOOD COUNT 4.65 x10e6/uL (3.6-5.1)
[2017-10-02 17:11] LABS: INR 1.11; PROTHROMBIN TIME 13.5 seconds (11.9-14.5)
[2017-10-02 17:12] LABS: PARTIAL THROMBOPLASTIN TIME 26.1 seconds (23.8-35.5)
[2017-10-02 17:21] LABS: ALBUMIN 3.7 g/dL (3.5-5.0); ALBUMIN/GLOBULIN RATIO 0.8 (0.8-2.0); ANION GAP 18.2 mmol/L (8-16); CALCIUM 9.1 mg/dL (8.4-10.2); CREATININE, SERUM 1.41 mg/dL (0.57-1.11); POTASSIUM 3.2 mmol/L (3.5-5.1)
[2017-10-02 17:29] LABS: BILIRUBIN,URINE 2+ (NEGATIVE); CLARITY,URINE CLOUDY (CLEAR); COLOR,URINE YELLOW (YELLOW); KETONES,URINE TRACE (NEGATIVE); LEUKOCYTE ESTERASE ,URINE NEGATIVE (NEGATIVE); NITRITE,URINE NEGATIVE (NEGATIVE); PROTEIN,URINE DIPSTICK 1+ (NEGATIVE); URINE UROBILINOGEN 0.2 mg/dL (0.2 - 1)
[2017-10-02 17:31] LABS: BACTERIA,URINE MANY /HPF
[2017-10-02] MEDS ORDERED: ONDANSETRON HCL INJ 2 MG/ML VIAL IV ONE (17:35)
[2017-10-02] MEDS ORDERED: HYDROMORPHONE 2MG/ML INJ IV ONE (17:45)
[2017-10-02] MEDS ORDERED: HYDROMORPHONE 1MG/1ML INJ IV ONE (17:45)
--- OUTSIDE RECORDS SUMMARY | 2017-10-02 18:07 | XMS REPORT | Clinical Summary ---
Author Author MALORIE SP3HCaribou Memorial [email or web address] East [facility] Address Unknown Phone Unavailable Care Team Providers Care Cleaner Greaser Name Role Phone PCP Unavailable Allergies Active [...] MD Event 04/09/2017 Orders Only Juliet Catalan, AGILE PROJECT MANAGER, Obstructive sleep apnea INDUSTRIAL SEAMSTRESS syndrome (Primary Dx);Morbid obesity (HCC) 04/06/2017 Hospital [...] Taken Blood Pressure 132/83 04/11/2017 5:50 PM STILL OPERATOR WHISKEY Pulse 93 04/11/2017 5:50 PM STILL OPERATOR WHISKEY Temperature 36.6 C (97.9 F) 04/11/2017 3:25 PM STILL OPERATOR WHISKEY Respiratory Rate 20 04/11/2017 3:25 PM STILL OPERATOR WHISKEY Oxygen Saturation 94% 04/11/2017 5:50 PM STILL OPERATOR WHISKEY Inhaled Oxygen - - Concentration Weight 149.2 kg (328 lb 14.8 oz) 04/10/2017 11:37 AM STILL OPERATOR WHISKEY Height 175.3 cm (5' 9") 04/10/2017 11:37 AM STILL OPERATOR WHISKEY Body Mass Index 48.57 04/10/2017 11:37 AM STILL OPERATOR WHISKEY Plan of Treatment Health Maintenance Due Date Last Done Comments INFLUENZA VACCINE 01/21/2018 Procedures Procedure Name Priority Date/Time Associated Diagnosis Comments CYSTOSCOPY 04/10/2017 Uterine bleeding 1:00 PM STILL OPERATOR WHISKEY LAPAROSCOPY,CYSTECTOMY/SA 04/10/2017 Uterine bleeding LPINGECTOMY/OOPHORECTOMY 1:00 PM STILL OPERATOR WHISKEY HYSTERECTOMY,VAGINAL W/ 04/10/2017 Uterine bleeding SALPINGO-OOPHORECTOMY 1:00 PM STILL OPERATOR WHISKEY after 10/01/2016 Results * INTRAOPERATIVE PATH REPORT - SCAN (05/02/2017 2:11 PM) * RHYTHM STRIP - SCAN (04/17/2017 2:21 PM) * TRANSFUSION SERVICE REPORT - SCAN (04/13/2017 5:44 PM) Only the most recent of 5 results within the time period is included. * POC-Glucose meter (04/11/2017 6:06 PM) Component Value Ref Range POC-Glucose Meter 187 (H)Comment: TESTED AT [address] 70 - 110 mg /dL [facility] [address] Specimen Performing Laboratory Blood [address] [address] * Hemoglobin A1c (04/11/2017 2:25 PM) Component Value Ref Range Hemoglobin A1C 7.0 (H) 4.3 - 6.1 % Specimen Performing Laboratory Blood [address] [address] * CBC with platelet count + automated [...] 1 % Granulocytes-Relative Specimen Performing Laboratory Blood [address] [address] * CBC with platelet count + automated diff (04/11/2017 3:28 AM) Only the most recent of 2 results within the time period is included. Specimen Performing Laboratory Blood Narrative The following orders were created for panel order CBC with platelet count + automated diff. Procedure Abnormality Status --------- - ------ CBC with platelet count ...[[id number]]AbnormalFinal result Please view results for these tests [...] FOR DIALYSIS PATIENTS. Specimen Performing Laboratory Blood [address] [address] * Tissue Exam (04/10/2017 4:55 PM) Component Value Ref Range Case Report Surgical Pathology Report Case: [id number] Authorizing Provider: MikePavankristina, Collected: 04/10/2017 1655 Ordering Location: [facility] PERIOPERATIVE Received: 04/10/2017 1703 SERVICES Pathologist: Marianne [...] PATHOLOGIC CHANGES Signing Pathologist Direct Phone Line: [phone] CPT Code(s) 41146, 52354 CLINICAL HISTORY Abnormal uterine bleed SPECIMEN SOURCE [...] identified within the cervix or uterine body. Pump Tester sections are submitted as follows: cassette A1-A3, [...] P.M. MICROSCOPIC DESCRIPTION A-C: Performed. Professional component [facility], Department of was performed at Pathology, [address] [place] [address], [place] [address], Specimen Performing Laboratory Tissue - Uterus w/Cervix; [facility] Tissue - Fallopian Tube, [address] [place] [address] Right & Ovary; [place] [address] Fallopian Tube, Left & Ovary * POCT , urine (04/10/2017 1:18 PM) Component Value Ref Range Test Urine, POC Negative Control line present?, Yes POC Background clear?, POC Yes UPT Cassette Lot #, POC [id number] UPT Cassette Expiration 09/20/2018 Date, POC * Prepare RBC (04/09/2017 12:07 PM) Only the most recent of 3 results within the time period is included. Component Value Ref Range Unit ABO B Pos UNIT NUMBER [id number] Status WORK IN PROGRESS Blood Bank Product RED BLOOD CELLS PRODUCT CODE [id number] Unit ABO B Pos UNIT NUMBER [id number] Status WORK IN PROGRESS Blood Bank Product RED BLOOD CELLS PRODUCT CODE [id number] Specimen Performing Laboratory [facility] [place] * NM myocardial perfusion SPECT, pharm(Lexiscan) (04/09/2017 11:31 AM) Specimen Performing Laboratory GE [facility] Narrative FINAL REPORT PROCEDURE:2-Day Stress/Rest MYOCARDIAL PERFUSION SPECT with regadenoson\\XA9\\ CPT CODE:16281 INDICATION:Z01.818, I 10, E 78.5, I 82.90, [...] MD Report Verified Date/Time:04/09/2017 14:36:37 Reading Location: [address] Reading Room Procedure Note Interface, External Ris In - 04/09/2017 2:38 PM STILL OPERATOR WHISKEY FINAL REPORT PROCEDURE: 2-Day Stress/Rest MYOCARDIAL PERFUSION SPECT with regadenoson\\XA9\\ CPT CODE: 40199 INDICATION: Z01.818, I 10, E 78.5, I [...] Report Verified Date/Time: 04/09/2017 14:36:37 Reading Location: [address] Reading Room * Treadmill tolerance(Non-Nuclear Treadmill) (04/06/2017 10:27 AM) Specimen Performing Laboratory [employer] Narrative Protocol Name Regadenoson Time In Exercise [...] External Ris In - 04/11/2017 1:01 PM STILL OPERATOR WHISKEY Protocol Name Neptali Time In Exercise Phase [...] 10:48:47 AM Confirmed by MD FERGUSON JORGE ([id number]) on 04/11/2017 1:01:06 PM * Antibody identification [...] POSITIVEComment: Echo 2 Specimen [place]forming [place] [address] * Screen, urine (03/22/2017 5:11 PM) Component Value Ref Range Preg Test, Ur Negative Specimen [place] [address] * Direct AHG (NOÉ)/Direct Liborio (03/22/2017 5:11 PM) Component Value Ref Range Direct AHG-IGG POSITIVEComment: Ig+ Direct AHG-C3B, C3D POSITIVEComment: C3: 1+ Specimen [place]forming [place] [address] * Comprehensive metabolic panel (03/22/2017 5:11 PM) [...] FOR DIALYSIS PATIENTS. Specimen Performing Laboratory Blood [address] [address] * PT/aPTT (03/22/2017 5:10 PM) Component Value Ref Range Protime 14.4 11.7 - 14.7 seconds INR 1.1 <=5.9 PTT 27.6 22.5 - 36.0 seconds Specimen Performing Laboratory Blood [address] [address] Narrative RECOMMENDED COUMADIN/WARFARIN INR THERAPY RANGES STANDARD DOSE: 2.0 - 3.0 Includes: PROPHYLAXIS for venous thrombosis, systemic embolization; TREATMENT for venous thrombosis and/or pulmonary embolus. HIGH RISK: Target INR is 2.5-3.5 for patients with mechanical heart valves. after 10/01/2016
[2017-10-02] MEDS ORDERED: ONDANSETRON HCL INJ 2 MG/ML VIAL IV PRN (18:15)
[2017-10-02] MEDS ORDERED: HYDROMORPHONE 1MG/1ML INJ IV PRN (18:15)
[2017-10-02] MEDS ORDERED: DEXTROSE 50% SYRINGE 50 ML IV PRN (18:15)
[2017-10-02] MEDS ORDERED: HYDROMORPHONE 2MG/ML INJ IV PRN (18:15)
--- NOTE | 2017-10-02 18:28 | Diagnostic Imaging Report ---
PROCEDURE: A single AP view of the chest. COMPARISON: [facility], CT, CT ABDOMEN/PELVIS W, 01/09/2017, 22:01. [facility], DX, CHEST XRAY LINE PLACEMENT, 09/19/2017, 16:48. INDICATIONS: CHECK LEFT PICC LINE PLACEMENT FINDINGS: See impression. IMPRESSION: 1. left sided PICC line has distal tip projecting near the mid SVC. 2. Left basal atelectatic changes. 3. Left diaphragmatic calcified pleural plaque. 4. Cardiomediastinal silhouette is unremarkable. Pulmonary vasculature is normal. Cristpoher Higgins M.D. Dictated by: Cristopher Higgins M.D. on 10/02/2017 at 18:31 Electronically approved by: Cristopher Higgins M.D. on 10/02/2017 at 18:31
[2017-10-02] MEDS: PROMETHAZINE 12.5MG/ NACL 0.9% 12.5 MG/50 ML BAG IV PRN (19:41)
[2017-10-02] MEDS ORDERED: POTASSIUM CHLORIDE 20 MEQ TAB CR PO ONE (19:45)
[2017-10-02] MEDS: SODIUM CHLORIDE 0.9% 1000ML 1,000 ML IV SCH (20:00)
[2017-10-02 20:15] VITALS: BP 140/81
[2017-10-02 20:30] VITALS: BP 140/81
[2017-10-02] MEDS: INSULIN REGULAR, HUMAN 100 UNIT/1 ML 3ML VIAL SQ SCH (20:35)
[2017-10-02] MEDS ORDERED: ACETAMINOPHEN/CODEINE 300MG - 30MG TAB PO PRN (20:45)
[2017-10-02] MEDS ORDERED: MORPHINE SULFATE 4 MG/ML SYR IV PRN (20:45)
[2017-10-02] MEDS ORDERED: ACETAMINOPHEN 325 MG TAB PO PRN (20:45)
[2017-10-02] MEDS ORDERED: NON-FORMULARY MEDICATION (Aripiprazole (Abilify) 15 MG) PO SCH (21:00)
[2017-10-02] MEDS ORDERED: REQUIP4 MG PO (21:39)
[2017-10-02] MEDS: ARIPIPRAZOLE 5 MG TABLET PO SCH (22:19)
[2017-10-02] MEDS: GABAPENTIN 300 MG CAP PO SCH (22:19)
[2017-10-02] MEDS: FAMOTIDINE 20 MG/2 ML VIAL IV SCH (22:19)
[2017-10-02] MEDS: METOCLOPRAMIDE HCL 10 MG TAB PO SCH (22:19)
[2017-10-02] MEDS: MORPHINE SULFATE 2 MG/ML SYR IV PRN (22:19)
[2017-10-03] MEDS: CEFTRIAXONE SOD 1 GM VIAL IV SCH ×2 (00:42→18:04)
[2017-10-03] MEDS: PROMETHAZINE 12.5MG/ NACL 0.9% 12.5 MG/50 ML BAG IV PRN ×2 (01:52→08:40)
[2017-10-03] MEDS: SODIUM CHLORIDE 0.9% 1000ML 1,000 ML IV SCH ×3 (02:32→17:19)
[2017-10-03 03:16] LABS: BASOPHILS # (AUTO) 0.1 (0.0-0.1); BASOPHILS % 1.3 % (0.0-1.0); EOSINOPHILS # (AUTO) 0.4 (0.0-0.4); EOSINOPHILS % 4.1 % (0.0-6.0); HEMATOCRIT 37.6 % (34.2-44.1); HEMOGLOBIN 13.6 g/dL (12.0-16.0); LYMPHOCYTES # (AUTO) 1.9 (1.0-3.2); MEAN CORPUSCULAR HEMOGLOBIN 32.5 pg (28-32); MEAN CORPUSCULAR HGB CONC 36.2 g/dL (31-35); MEAN CORPUSCULAR VOLUME 89.7 fL (81-99); MONOCYTES # (AUTO) 0.6 (0.2-0.8); MONOCYTES % 6.9 % (4.4-11.3); NEUTROPHILS # (AUTO) 5.5 (2.1-6.9); NEUTROPHILS % 65.1 % (38.7-80.0); PLATELET COUNT 247 x10e3/uL (140-360); RED BLOOD COUNT 4.19 x10e6/uL (3.6-5.1); RED CELL DISTRIBUTION WIDTH 11.9 % (11.7-14.4)
[2017-10-03 03:40] LABS: ANION GAP 16.4 mmol/L (8-16); BLOOD UREA NITROGEN 19 mg/dL (7-26); BUN/CREATININE RATIO 15 (6-25); CALCIUM 8.5 mg/dL (8.4-10.2); CARBON DIOXIDE 25 mmol/L (22-29); CHLORIDE 103 mmol/L (98-107); CHOL/HDL RATIO 5.7 (3.0-3.6); CHOLESTEROL 171 MD/DL (0-199); CREATININE, SERUM 1.24 mg/dL (0.57-1.11); EST GLOMERULAR FILTRATION RATE 46 ML/MIN (60-); GLUCOSE 146 mg/dL (74-118); HDL CHOLESTEROL 30 MG/DL (40-60); POTASSIUM 3.4 mmol/L (3.5-5.1); SODIUM 141 mmol/L (136-145); TRIGLYCERIDES 488 MG/DL (0-149)
[2017-10-03] MEDS: MORPHINE SULFATE 2 MG/ML SYR IV PRN ×2 (03:58→08:40)
[2017-10-03 04:00] LABS: FREE T4 (FREE THYROXINE) 1.03 ng/dL (0.9-1.8); THYROID STIMULATING HORMONE 0.731 uIU/mL (0.350-4.940)
[2017-10-03 04:03] LABS: B-TYPE NATRIURETIC PEPTIDE2 < 10.0 pg/mL (0-100)
[2017-10-03] MEDS ORDERED: MAGNESIUM SULFATE 2GM/50ML 50 ML IV ONE (05:30)
[2017-10-03 06:30] VITALS: BP 159/72
[2017-10-03] MEDS: INSULIN REGULAR, HUMAN 100 UNIT/1 ML 3ML VIAL SQ SCH ×4 (07:30→21:00)
[2017-10-03 07:45] VITALS: BP 116/85
[2017-10-03 08:00] VITALS: BP 116/85
[2017-10-03] MEDS: ETODOLAC 500 MG PO SCH ×2 (08:00→17:00)
[2017-10-03] MEDS ORDERED: POTASSIUM CHLORIDE 20 MEQ TAB CR PO NR (08:15)
[2017-10-03] MEDS: CITALOPRAM HYDROBROMIDE 20 MG TAB PO SCH (08:40)
[2017-10-03] MEDS: FOLIC ACID 1 MG TAB PO SCH (08:40)
[2017-10-03] MEDS: FAMOTIDINE 20 MG/2 ML VIAL IV SCH ×2 (08:40→21:00)
[2017-10-03] MEDS: SPIRONOLACTONE 25 MG TAB PO SCH (08:40)
[2017-10-03] MEDS: FERROUS SULFATE 325 MG TAB PO SCH (08:40)
[2017-10-03] MEDS: LORATADINE 10 MG TAB PEG SCH (08:40)
[2017-10-03] MEDS: POTASSIUM CHLORIDE 10 MEQ TABCR PO SCH (08:41)
[2017-10-03] MEDS: METOCLOPRAMIDE HCL 10 MG TAB PO SCH ×4 (08:41→21:00)
[2017-10-03] MEDS: GABAPENTIN 300 MG CAP PO SCH ×3 (08:41→21:00)
[2017-10-03] MEDS: FENOFIBRATE 160 MG PO SCH (08:41)
[2017-10-03] MEDS: LEVETIRACETAM 500 MG TAB PO SCH ×2 (08:41→17:19)
[2017-10-03] MEDS: FUROSEMIDE 20 MG TAB PO SCH (08:41)
[2017-10-03] MEDS: ATENOLOL 50 MG TAB PO SCH (08:41)
[2017-10-03] MEDS: PREGABALIN 75 MG CAP PO SCH ×2 (08:41→17:19)
[2017-10-03] MEDS: BUPROPION HCL 150 MG TABCR PO SCH (08:42)
[2017-10-03] MEDS: RIVAROXABAN 20 MG TABLET PO SCH (08:42)
[2017-10-03] MEDS ORDERED: LEVETIRACETAM 750 MG PO SCH (09:00)
[2017-10-03] MEDS ORDERED: NON-FORMULARY MEDICATION (Cetirizine Hcl 1 TAB) PEG SCH (09:00)
[2017-10-03] MEDS ORDERED: FENOFIBRATE 145 MG TAB PO SCH (09:00)
[2017-10-03] MEDS ORDERED: TRAMADOL HCL 50 MG TAB PO PRN (09:00)
[2017-10-03] MEDS ORDERED: CITALOPRAM HYDROBROMIDE PO SCH (09:00)
[2017-10-03] MEDS ORDERED: NON-FORMULARY MEDICATION (Pravastatin Sodium 1 TAB) PO SCH (09:00)
[2017-10-03] MEDS: CARISOPRODOL 350 MG TAB PO SCH ×3 (09:41→21:00)
[2017-10-03] MEDS: HYDROCODONE/APAP 10MG-325MG TAB PO PRN (12:09)
[2017-10-03 14:39] VITALS: BP 136/96
[2017-10-03 17:00] VITALS: BP 132/60
[2017-10-03 20:00] VITALS: BP 157/83
[2017-10-03] MEDS: ARIPIPRAZOLE 5 MG TABLET PO SCH (21:00)
[2017-10-03] MEDS: ROPINIROLE HCL 2 MG TAB PO SCH (21:00)
[2017-10-03] MEDS: PRAVASTATIN 20 MG TAB PO SCH (21:00)
[2017-10-04] VITALS: BP 169/81
[2017-10-04] MEDS: HYDRALAZINE HCL 20 MG/ML VIAL IV PRN ×2 (01:40→21:05)
[2017-10-04] MEDS: SODIUM CHLORIDE 0.9% 1000ML 1,000 ML IV SCH ×3 (01:44→17:57)
[2017-10-04] MEDS: HYDROCODONE/APAP 10MG-325MG TAB PO PRN ×3 (03:17→21:05)
[2017-10-04 03:27] LABS: BASOPHILS # (AUTO) 0.1 (0.0-0.1); BASOPHILS % 1.3 % (0.0-1.0); EOSINOPHILS # (AUTO) 0.4 (0.0-0.4); EOSINOPHILS % 5.9 % (0.0-6.0); HEMOGLOBIN 13.2 g/dL (12.0-16.0); LYMPHOCYTES # (AUTO) 1.6 (1.0-3.2); LYMPHOCYTES % 24.8 % (18.0-39.1); MEAN CORPUSCULAR HEMOGLOBIN 32.4 pg (28-32); MEAN CORPUSCULAR HGB CONC 35.7 g/dL (31-35); MEAN CORPUSCULAR VOLUME 90.9 fL (81-99); MONOCYTES # (AUTO) 0.4 (0.2-0.8); MONOCYTES % 6.5 % (4.4-11.3); NEUTROPHILS # (AUTO) 3.8 (2.1-6.9); NEUTROPHILS % 60.7 % (38.7-80.0); PLATELET COUNT 234 x10e3/uL (140-360); RED BLOOD COUNT 4.07 x10e6/uL (3.6-5.1); RED CELL DISTRIBUTION WIDTH 11.9 % (11.7-14.4)
[2017-10-04 03:32] LABS: ANION GAP 13.8 mmol/L (8-16); CALCIUM 8.5 mg/dL (8.4-10.2); CREATININE, SERUM 1.22 mg/dL (0.57-1.11); MAGNESIUM 1.6 MG/DL (1.3-2.1); POTASSIUM 3.8 mmol/L (3.5-5.1)
[2017-10-04 04:00] VITALS: BP 157/77
[2017-10-04 07:30] VITALS: BP 138/90
[2017-10-04] MEDS: INSULIN REGULAR, HUMAN 100 UNIT/1 ML 3ML VIAL SQ SCH ×3 (07:30→21:00)
[2017-10-04] MEDS: ETODOLAC 500 MG PO SCH ×2 (07:39→16:14)
[2017-10-04 07:40] VITALS: BP 156/96
[2017-10-04] MEDS: FAMOTIDINE 20 MG/2 ML VIAL IV SCH ×2 (08:05→21:04)
[2017-10-04] MEDS: LORATADINE 10 MG TAB PEG SCH (08:05)
[2017-10-04] MEDS: FOLIC ACID 1 MG TAB PO SCH (08:05)
[2017-10-04] MEDS: CITALOPRAM HYDROBROMIDE 20 MG TAB PO SCH (08:05)
[2017-10-04] MEDS: FERROUS SULFATE 325 MG TAB PO SCH (08:05)
[2017-10-04] MEDS: SPIRONOLACTONE 25 MG TAB PO SCH (08:05)
[2017-10-04] MEDS: LEVETIRACETAM 500 MG TAB PO SCH ×2 (08:06→16:14)
[2017-10-04] MEDS: FENOFIBRATE 160 MG PO SCH (08:06)
[2017-10-04] MEDS: PREGABALIN 75 MG CAP PO SCH ×2 (08:06→16:14)
[2017-10-04] MEDS: METOCLOPRAMIDE HCL 10 MG TAB PO SCH ×4 (08:06→21:04)
[2017-10-04] MEDS: CARISOPRODOL 350 MG TAB PO SCH ×3 (08:06→21:04)
[2017-10-04] MEDS: GABAPENTIN 300 MG CAP PO SCH ×3 (08:06→21:04)
[2017-10-04] MEDS: POTASSIUM CHLORIDE 10 MEQ TABCR PO SCH (08:06)
[2017-10-04] MEDS: FUROSEMIDE 20 MG TAB PO SCH (08:06)
[2017-10-04] MEDS: PROMETHAZINE 12.5MG/ NACL 0.9% 12.5 MG/50 ML BAG IV PRN ×2 (08:07→21:14)
[2017-10-04] MEDS: BUPROPION HCL 150 MG TABCR PO SCH (08:07)
[2017-10-04] MEDS: ATENOLOL 50 MG TAB PO SCH (08:07)
[2017-10-04] MEDS: RIVAROXABAN 20 MG TABLET PO SCH (08:07)
[2017-10-04] MEDS ORDERED: AMLODIPINE BESYLATE 10 MG TAB PO SCH (09:00)
[2017-10-04] MEDS ORDERED: FENTANYL 25 MCG/HR PATCH TOP SCH (11:45)
[2017-10-04] MEDS ORDERED: ACETAMINOPHEN/CODEINE 300MG - 30MG TAB PO PRN ×2 (12:45)
[2017-10-04] MEDS ORDERED: DIPHENHYDRAMINE HCL 25 MG CAP PO PRN (16:00)
[2017-10-04 16:13] VITALS: BP 171/110
[2017-10-04] MEDS: CEFTRIAXONE SOD 1 GM VIAL IV SCH (18:46)
[2017-10-04 20:00] VITALS: BP 180/100
[2017-10-04] MEDS: PRAVASTATIN 20 MG TAB PO SCH (21:04)
[2017-10-04] MEDS: ARIPIPRAZOLE 5 MG TABLET PO SCH (21:04)
[2017-10-04] MEDS: ROPINIROLE HCL 2 MG TAB PO SCH (21:04)
[2017-10-05] VITALS: BP 143/91
[2017-10-05] MEDS: SODIUM CHLORIDE 0.9% 1000ML 1,000 ML IV SCH (01:57)
[2017-10-05 04:00] VITALS: BP 171/123
[2017-10-05 06:33] LABS: BASOPHILS # (AUTO) 0.1 (0.0-0.1); BASOPHILS % 0.9 % (0.0-1.0); EOSINOPHILS # (AUTO) 0.4 (0.0-0.4); EOSINOPHILS % 5.6 % (0.0-6.0); HEMATOCRIT 37.2 % (34.2-44.1); LYMPHOCYTES # (AUTO) 1.5 (1.0-3.2); LYMPHOCYTES % 20.2 % (18.0-39.1); MEAN CORPUSCULAR HEMOGLOBIN 32.3 pg (28-32); MEAN CORPUSCULAR HGB CONC 34.9 g/dL (31-35); MEAN CORPUSCULAR VOLUME 92.5 fL (81-99); MONOCYTES # (AUTO) 0.5 (0.2-0.8); MONOCYTES % 7.2 % (4.4-11.3); NEUTROPHILS # (AUTO) 4.8 (2.1-6.9); NEUTROPHILS % 65.4 % (38.7-80.0); PLATELET COUNT 252 x10e3/uL (140-360); RED BLOOD COUNT 4.02 x10e6/uL (3.6-5.1); RED CELL DISTRIBUTION WIDTH 11.8 % (11.7-14.4)
[2017-10-05 06:52] LABS: CALCIUM 8.9 mg/dL (8.4-10.2); CREATININE, SERUM 1.2 mg/dL (0.57-1.11); MAGNESIUM 1.3 MG/DL (1.3-2.1)
[2017-10-05] MEDS: HYDROCODONE/APAP 10MG-325MG TAB PO PRN (07:19)
[2017-10-05] MEDS: HYDRALAZINE HCL 20 MG/ML VIAL IV PRN (07:19)
[2017-10-05] MEDS ORDERED: TYLENOL WITH C1 EACH PO (07:53)
[2017-10-05] MEDS ORDERED: NIFEDIPINE ER30 M1 PO (07:53)
[2017-10-05] MEDS ORDERED: NIFEDIPINE CR 30 MG TAB PO SCH (08:00)
[2017-10-05] MEDS: ETODOLAC 500 MG PO SCH (08:00)
[2017-10-05] MEDS ORDERED: DOXYCYCLINE HY100 MG PO (08:01)
[2017-10-05 08:03] VITALS: BP 159/103
[2017-10-05 08:27] VITALS: BP 159/103
[2017-10-05] MEDS: FOLIC ACID 1 MG TAB PO SCH (08:31)
[2017-10-05] MEDS: BUPROPION HCL 150 MG TABCR PO SCH (08:31)
[2017-10-05] MEDS: GABAPENTIN 300 MG CAP PO SCH (08:31)
[2017-10-05] MEDS: FUROSEMIDE 20 MG TAB PO SCH (08:31)
[2017-10-05] MEDS: FERROUS SULFATE 325 MG TAB PO SCH (08:31)
[2017-10-05] MEDS: INSULIN REGULAR, HUMAN 100 UNIT/1 ML 3ML VIAL SQ SCH ×2 (08:31→12:17)
[2017-10-05] MEDS: METOCLOPRAMIDE HCL 10 MG TAB PO SCH (08:32)
[2017-10-05] MEDS: RIVAROXABAN 20 MG TABLET PO SCH (08:32)
[2017-10-05] MEDS: LORATADINE 10 MG TAB PEG SCH (08:32)
[2017-10-05] MEDS: SPIRONOLACTONE 25 MG TAB PO SCH (08:32)
[2017-10-05] MEDS: CITALOPRAM HYDROBROMIDE 20 MG TAB PO SCH (08:32)
[2017-10-05] MEDS: POTASSIUM CHLORIDE 10 MEQ TABCR PO SCH (08:32)
[2017-10-05] MEDS: FAMOTIDINE 20 MG/2 ML VIAL IV SCH (08:32)
[2017-10-05] MEDS: PREGABALIN 75 MG CAP PO SCH (08:32)
[2017-10-05] MEDS: LEVETIRACETAM 500 MG TAB PO SCH (08:32)
[2017-10-05] MEDS: CARISOPRODOL 350 MG TAB PO SCH (08:33)
[2017-10-05] MEDS: ATENOLOL 50 MG TAB PO SCH (08:33)
[2017-10-05] MEDS: FENOFIBRATE 160 MG PO SCH (08:33)
--- NOTE | 2017-10-05 09:19 | Discharge Summary ---
ADMISSION DIAGNOSES 1. Left lower extremity cellulitis. 2. Hypertension. 3. Hyperlipidemia. 4. Restless leg syndrome. 5. History of deep venous thrombosis and pulmonary embolism. 6. Chronic pain. 7. History of seizures. 8. Acute kidney injury. 9. Depression. 10. Gastroesophageal reflux disease. 11. Hypokalemia. 12. Hypomagnesemia. DISCHARGE DIAGNOSES 1. Left lower extremity cellulitis. 2. Hypertension. 3. Hyperlipidemia. 4. Restless leg syndrome. 5. History of deep venous thrombosis and pulmonary embolism. 6. Chronic pain. 7. History of seizures. 8. Acute kidney injury. 9. Depression. 10. Gastroesophageal reflux disease. 11. Hypokalemia. 12. Hypomagnesemia. HISTORY: Patient has a history of hypertension, history of right lower extremity DVT and PE, chronic back pain, hyperlipidemia, depression, seizures, scoliosis, morbid obesity, GERD, type 2 diabetes, RLS, and gastric ulcers. Surgical history of brain surgery times 2, back surgery times 3, hysterectomy and appendectomy. HOSPITAL COURSE: A 47-year-old female sent from Dr. Potts's office due to MARIIA/cellulitis. Patient was hospitalized 2 weeks ago for left lower extremity cellulitis and sent home with IV vanco. She had blood drawn at Dr. Potts's office on Sunday, but did not get the results until Sunday. They urged her to go to the ER. She did not comply until she started to feel tired and weak. On admission, her left lower extremity cellulitis is improving. She also complains of nausea and vomiting that began yesterday with no fevers. On admission, Dr. Potts was consulted, and the patient started on IV Rocephin. Pain management was consulted because the patient has chronic pain, and nothing that we were giving her was helping. The patient resumed on home meds for other issues. Started on IV fluids for her acute kidney injury. Chest x-ray on admission showed a left-sided PICC, left basal atelectasis. Urine culture was found to be contaminated. The patient remained afebrile during hospitalization. On admission, her creatinine was 1.41. On discharge, it was 1.2. GFR on admission was 40. GFR on discharge was 48. On the day of discharge, her sodium was 140, potassium 4, creatinine 1.2, GFR 48, BUN 15. Calcium 8.9. Mag 1.3. WBC 7.37, hemoglobin 13, hematocrit 37.2, and platelets of 252,000. The patient feels much better and is ready to go home. She was urged to increase her water intake. She was discharged on nifedipine to control her blood pressure. Her lisinopril was stopped due to the MARIIA. She was told to follow up with primary care and change her hypertensive medications once the MARIIA has resolved. She will be sent home with Tylenol No. 3, doxycycline b.i.d. for 2 weeks per infectious disease rec and nifedipine. She will resume other home medications besides lisinopril. She understands discharge instructions, and will follow up with Dr. Potts and primary care in 2 weeks. DICTATED BY ERICA PROCTOR NP JOMAR EARLY MD Job#: [id number]
[2017-10-05 10:34] VITALS: BP 159/76
[2017-10-05 12:00] VITALS: BP 140/92
--- NOTE | 2017-10-06 00:43 | Consultation ---
REASON FOR CONSULTATION: Cellulitis of the leg. HISTORY OF PRESENT ILLNESS: This patient who is well known to me, 47-year-old white female. History of obesity, history of recurrent leg cellulitis. The patient was recently in hospital with cellulitis. She does have underlying history of obesity, recurrent infection as well as lymphedema. The patient was in the hospital recently. She received vancomycin with improvement and she was doing well, so she was discharged home with IV antibiotic vancomycin namely. The patient started to have increased creatinine, it went up to 2.3. She says she was not feeling well. She had nausea, so I told her to come to the emergency room to be evaluated and admitted. Patient came to the emergency room. I did discuss the case , patient will benefit from being admitted and getting IV fluids. When I saw the patient, she was already feeling better, there were no new complaints. She had no shortness of breath. Her main complaint was she was having pain. The patient does have history of neuropathy and she is seeing pain management doctor, but she is trying to change them. The patient history of obesity, lymphedema, cellulitis, obesity. When I saw the patient, she was lying in bed comfortably. REVIEW OF SYSTEMS: HEENT: Negative. PULMONARY: Negative. CARDIAC: Negative. : Negative. GI: Negative. SKIN: There is no other rash. Her leg actually is feeling much better. All other systems except the pain which she had for longtime is unremarkable. MEDICATION LIST: Reviewed, at home. LABORATORY DATA: Reviewed while she is in the emergency room. PHYSICAL EXAMINATION: GENERAL: She is currently alert, oriented, does not seem to be in acute distress. VITAL SIGNS: Stable, currently afebrile. HEENT: She is normocephalic, does not appear icteric. NECK: Supple. No JVD, no lymphadenopathy, no thyromegaly. CHEST: Clear bilaterally. HEART: S1 and S2. No murmur. ABDOMEN: Soft, obese. EXTREMITIES: In the leg, there is no erythema or edema. IMPRESSION: 1. Acute kidney injury, probably from antibiotic. 2. Underlying history of hypertension. I will suggest to discontinue vancomycin, continue with intravenous fluids. Will put her on Rocephin for the time being. Recheck complete blood cell count, recheck chemistry panel. Pain management per internal medicine. Other medical problem as above seemed to be stable. Will follow with you. Job#: [id number]
== END 2017-10-05 12:15 | disposition home or self-care (01) | DRG 603 ==
LOC: ER 14:52 → ERHOLD 18:04 → MED/SURG2 18:44
PROVIDERS: ADMIT Internal Medicine; ATTEND Internal Medicine
DX: L03.116 Cellulitis of left lower limb (principal); N17.9 Acute kidney failure, unspecified; Z68.41 Body mass index [BMI] 40.0-44.9, adult; K21.9 Gastro-esophageal reflux disease without esophagitis; I10 Essential (primary) hypertension; E78.5 Hyperlipidemia, unspecified; T36.95XA Adverse effect of unspecified systemic antibiotic, initial encounter; G25.81 Restless legs syndrome; E83.42 Hypomagnesemia; F32.9 Major depressive disorder, single episode, unspecified; E87.6 Hypokalemia; G40.909 Epilepsy, unspecified, not intractable, without status epilepticus; E66.01 Morbid (severe) obesity due to excess calories; G62.9 Polyneuropathy, unspecified; Z79.899 Other long term (current) drug therapy; R53.81 Other malaise; I89.0 Lymphedema, not elsewhere classified; Z86.718 Personal history of other venous thrombosis and embolism; Z79.01 Long term (current) use of anticoagulants; Z86.711 Personal history of pulmonary embolism; Z91.14 Patient's other noncompliance with medication regimen; G89.4 Chronic pain syndrome
CPT/HCPCS: 36415; 71045; 80048; 80053; 80061; 80202; 81001; 82948; 83036; 83735; 83880; 84439; 84443; 85025; 85610; 85730; 87086; 93005; 99284; J0360; J0696; J1170; J2270; J2405; J2550; J7030